=== PATIENT | male | born 1950 | race Caucasian/White ===

== ENCOUNTER 2017-11-27 09:10 | Outpatient (REF) | payer MEDICARE, SELFPAY ==
[2017-11-27 10:28] LABS: ALT 19 U/L (12-78); AST 17 U/L (15-37); Albumin 3.3 g/dL (3.4-5.0); Alkaline Phosphatase 77 U/L (46-116); Bilirubin, Total 0.6 mg/dL (0.2-1.0); Cholesterol 144 mg/dL (50-200); HDL Cholesterol 33 mg/dL (40-60); LDL CHOLESTEROL 85 mg/dL (<100); TSH 2.82 uIU/mL (0.358-3.74); Total Protein 6.5 g/dL (6.4-8.2); Triglyceride 104 mg/dL (30-150)
[2017-11-27 10:39] LABS: Bilirubin, Direct 0.16 mg/dL (0.00-0.20); Creatine Kinase 37 U/L (39-308)
== END 2017-11-27 09:11 ==
LOC: LBN 09:10
PROVIDERS: Visit Provider Family Medicine
DX: I10 Essential (primary) hypertension (principal); E11.9 Type 2 diabetes mellitus without complications; E78.5 Hyperlipidemia, unspecified
CPT/HCPCS: 80061; 80076; 82550; 83721; 84443

== ENCOUNTER 2018-01-31 00:32 | Outpatient (CLI) | payer MEDICARE, SELFPAY ==
--- NOTE | 2018-01-31 07:30 | MERGE_ITS ---
*[facility]* *[facility]* [address] [place] [address] Date of study: 01/31/2018 Transthoracic Echocardiography M-mode, complete 2D, complete spectral Doppler, and color Doppler *STUDY CONCLUSIONS* Impressions: Severe aortic stenosis. Summary: 1. Left ventricle: The cavity size was normal. Wall thickness was increased in a pattern of mild LVH. Systolic function was normal. The estimated ejection fraction was 55-60%. Wall motion was normal; there were no regional wall motion abnormalities. Findings consistent with diastolic dysfunction. Doppler parameters are consistent with high ventricular filling pressure. 2. Aortic valve: There was severe stenosis. There was mild regurgitation. Peak velocity (S): 5.5m/sec. Mean gradient (S): 76mm Hg. Valve area (VTI): 0.5cm^2. 3. Right ventricle: The cavity size was normal. Wall thickness was normal. Systolic function was normal. 4. Right atrium: The atrium was dilated. Recommendations: The patient should be referred to a cardiology consultation. This consultation has been arranged and discussed with the referring physician. *PATIENT PRESENTATION* Height: 165.1cm ((65in) ) S/D Pressure: 107 / 67 Weight: 108.9kg ((239.5lb) ) BSA: 2.29m^2 Test start time: 07:40 AM. Test stop time: 08:40 AM. ORDERING Polina Ramachandran REFERRING Polina Ramachandran PERFORMING Unknown PERFORMING [facility] [employer] Meka Hall, (R)(CT), RDCS REFERRING Rehab, [facility] *PROCEDURE DATA* Procedure information: The patient was identified by two identifiers. This study was interpreted by [facility]. Pertinent images and digital data are archived for permanent storage and are available for subsequent review. No prior study was available for comparison. Study status: Routine. Transthoracic echocardiography. M-mode, complete 2D, complete spectral Doppler, and color Doppler. A Transthoracic Echocardiogram was performed. Scanning was performed from the parasternal, apical, subcostal, and suprasternal notch acoustic windows. Images were obtained using an [id number] cardiac ultrasound machine. Study completion: The patient tolerated the procedure well. There were no complications. History: PMH: Syncope. EKG changes. h/o CAD . *CARDIAC ANATOMY* Left ventricle: The cavity size was normal. Wall thickness was increased in a pattern of mild LVH. Systolic function was normal. The estimated ejection fraction was 55-60%. Wall motion was normal; there were no regional wall motion abnormalities. Findings consistent with diastolic dysfunction. Doppler parameters are consistent with high ventricular filling pressure. Aortic valve: Trileaflet; severely calcified leaflets. Valve mobility was restricted. Doppler: There was severe stenosis. There was mild regurgitation. VTI ratio of LVOT to aortic valve: 0.18. Valve area (VTI): 0.5cm^2. Indexed valve area (VTI): 0.2cm^2/m^2. Peak velocity ratio of LVOT to aortic valve: 0.16. Valve area (Vmax): 0.5cm^2. Indexed valve area (Vmax): 0.2cm^2/m^2. Mean velocity ratio of LVOT to aortic valve: 0.16. Valve area (Vmean): 0.5cm^2. Indexed valve area (Vmean): 0.2cm^2/m^2. Mean gradient (S): 76mm Hg. Peak gradient (S): 119.9mm Hg. Aorta: Aortic root: The aortic root was normal in size. Ascending aorta: The ascending aorta was normal in size. Mitral valve: Mildly calcified annulus. Mobility was not restricted. Doppler: Transvalvular velocity was within the normal range. There was no evidence for stenosis. There was no significant regurgitation. Valve area by pressure half-time: 2cm^2. Indexed valve area by pressure half-time: 0.9cm^2/m^2. Peak gradient (D): 2.1mm Hg. Left atrium: The atrium was normal in size. Right ventricle: The cavity size was normal. Wall thickness was normal. Systolic function was normal. Pulmonic valve: The pulmonary valve appears to be grossly normal. Doppler: Transvalvular velocity was within the normal range. There was no evidence for stenosis. There was trivial regurgitation. Peak gradient (S): 5mm Hg. Tricuspid valve: Structurally normal valve. Doppler: Transvalvular velocity was within the normal range. There was no evidence for stenosis. There was trivial regurgitation. Pulmonary artery: Systolic pressure could not be accurately estimated. Right atrium: The atrium was dilated. Pericardium: There was no pericardial effusion. Systemic veins: Inferior vena cava: Well visualized. The vessel was patent and normal in size. The respirophasic diameter changes were in the normal range (greater than or equal to 50%). Baseline ECG: Normal sinus rhythm. Measurements Left ventricle Value Reference LV ID, ED, PLAX 4.2 cm 3.5 - 6.0 LV ID, ES, PLAX 3.2 cm 2.1 - 4.0 LV PW thickness, ED, PLAX 1.2 cm LV end-diastolic volume, 1-p A2C 97 ml LV ejection fraction, 1-p A2C 52 % LV end-diastolic volume, 1-p A4C 97 ml LV ejection fraction, 1-p A4C 60 % LV e', lateral 0.054 m/sec LV E/e', lateral 13 LV e', medial 0.047 m/sec LV E/e', medial 15 LV e', average 0.05 m/sec LV E/e', average 14 Ventricular septum Value Reference IVS thickness, ED, PLAX 1.2 cm LVOT Value Reference LVOT ID, A-P 1.9 cm LVOT area 2.9 cm^2 LVOT peak velocity, S 0.88 m/sec LVOT mean velocity, S 0.68 m/sec LVOT VTI, S 24.6 cm LVOT peak gradient, S 3.1 mm Hg LVOT mean gradient, S 2 mm Hg Stroke volume (SV), LVOT DP 71 ml Stroke index (SV/bsa), LVOT DP 31 ml/m^2 Aortic valve Value Reference Aortic valve peak velocity, S 5.5 m/sec Aortic valve mean velocity, S 4.18 m/sec Aortic valve VTI, S 138.0 cm Aortic mean gradient, S 76 mm Hg Aortic peak gradient, S 119.9 mm Hg VTI ratio, LVOT/AV 0.18 Aortic valve area, VTI 0.5 cm^2 Velocity ratio, peak, LVOT/AV 0.16 Aortic valve area, peak velocity 0.5 cm^2 Velocity ratio, mean, LVOT/AV 0.16 Aortic valve area, mean velocity 0.5 cm^2 Aortic valve area/bsa, mean velocity 0.2 cm^2/m^2 Aorta Value Reference Aortic root ID, ED 3.6 cm RVOT Value Reference RVOT VTI, S 22.7 cm Left atrium Value Reference LA ID, A-P, ES 3.8 cm LA ID/bsa, A-P 1.6 cm/m^2 <=2.2 LA area, ES, A4C 22.7 cm^2 8.8 - 23.4 LA area, ES, A2C 22 cm^2 LA volume, ES, 2-p 66 ml LA volume/bsa, ES, 2-p 29 ml/m^2 LA/aortic root ratio 1.04 Mitral valve Value Reference Mitral annulus diameter, A-P, D 0.0 cm Mitral E-wave peak velocity 0.73 m/sec Mitral A-wave peak velocity 1.03 m/sec Mitral deceleration time (H) 384 ms 150 - 230 Mitral pressure half-time 111 ms Mitral peak gradient, D 2.1 mm Hg Mitral E/A ratio, peak 0.7 Mitral valve area, PHT, DP 2 cm^2 Pulmonary veins Value Reference Pulmonary vein peak velocity, S 0.62 m/sec Pulmonary vein peak velocity, D 0.36 m/sec Pulmonary vein velocity ratio, peak, 1.73 S/D Pulmonary vein A-wave reversal peak 0.36 m/sec velocity Pulmonary vein A-wave reversal 157 ms duration Tricuspid valve Value Reference Tricuspid regurg peak velocity 2.7 m/sec Tricuspid peak RV-RA gradient 28.6 mm Hg Right atrium Value Reference RA area, ES, A4C (H) 19.8 cm^2 8.3 - 19.5 Pulmonic valve Value Reference Pulmonic peak gradient, S 5 mm Hg Legend: (L) and (H) yeison values outside specified reference range. I have personally reviewed the images and have reviewed and edited the reported findings. Electronically signed by Jonathan Sky 01/31/2018 09:53
== END 2018-01-31 00:52 ==
PROVIDERS: Visit Provider Family Medicine
DX: I35.0 Nonrheumatic aortic (valve) stenosis (principal); I35.1 Nonrheumatic aortic (valve) insufficiency; I51.7 Cardiomegaly
CPT/HCPCS: 93306

== ENCOUNTER 2018-01-31 09:13 | Outpatient (CLI) | payer MEDICARE, SELFPAY | END 2018-01-31 09:33 | PROVIDERS: Visit Provider Student in an Organized Health Care Education/Training Program | DX: I35.0 Nonrheumatic aortic (valve) stenosis (principal); R55 Syncope and collapse; E11.9 Type 2 diabetes mellitus without complications; Z79.4 Long term (current) use of insulin | CPT/HCPCS: 99204 ==

== ENCOUNTER 2018-02-02 14:03 | Outpatient (REF) | payer MEDICARE, SELFPAY ==
[2018-02-02 14:45] LABS: BUN 15 mg/dL (7-18); CREATININE 0.78 mg/dL (0.70-1.30)
== END 2018-02-02 14:23 ==
LOC: LBN 14:03
PROVIDERS: Visit Provider Family Medicine
DX: Z04.89 Encounter for examination and observation for other specified reasons (principal); I10 Essential (primary) hypertension; E11.9 Type 2 diabetes mellitus without complications; F31.2 Bipolar disorder, current episode manic severe with psychotic features; E78.5 Hyperlipidemia, unspecified
CPT/HCPCS: 84520; 82565

== ENCOUNTER 2018-09-18 11:34 | Outpatient (CLI) | payer MEDICARE, SELFPAY ==
[2018-09-18 12:11] LABS: Abs Immature Grans 0.04 k/cumm (0.0-0.09); Absolute Basophil Count 0.02 k/cumm (0.0-0.2); Absolute Lymphocyte Count 1.68 k/cumm (1.2-3.4); Absolute Monocyte Count 0.57 k/cumm (0.11-0.7); Absolute Neutrophil Count 3.26 k/cumm (1.2-6.7); Basophils % 0.4; Eosinophils % 1.8; HCT 38.1 % (40.0-50.0); Immature Grans % 0.7; Lymphocytes % 29.6; Mean Corp. HGB Concentration 34.1 g/dL (32.0-36.0); Mean Corpuscular Hemoglobin 29.5 pg (27.0-33.0); Mean Corpuscular Volume 86.6 fL (80-95); Monocytes % 10.1; Neutrophils % 57.4; Platelet Count 147 x1000/uL (130-400); RBC Distribution Width 13.5 % (11.8-14.1); White Blood Cell Count 5.67 k/cumm (4.4-10.8)
[2018-09-18 12:28] LABS: VALPROIC ACID 77.5 ug/mL (50-100)
[2018-09-18 12:42] LABS: ALT 36 U/L (12-78); AST 28 U/L (15-37); Alkaline Phosphatase 81 U/L (46-116); Anion Gap 7.9 mmol/L (3-11); BUN 17 mg/dL (7-18); Bilirubin, Direct 0.11 mg/dL (0.00-0.20); Bilirubin, Total 0.4 mg/dL (0.2-1.0); CO2 28.1 mmol/L (21.0-32.0); CREATININE 0.84 mg/dL (0.70-1.30); Calcium 9.1 mg/dL (8.5-10.1); Chloride 100 mmol/L (98-107); Glucose 417 mg/dL (70-100); Potassium 4.1 mmol/L (3.5-5.1); Sodium 136 mmol/L (136-145); Total Protein 6.2 g/dL (6.4-8.2)
[2018-09-18 13:01] LABS: Hemoglobin A1C 9.1 % (4.5-6.2)
== END 2018-09-18 11:54 ==
PROVIDERS: Visit Provider Nurse Practitioner Adult Health
DX: E11.9 Type 2 diabetes mellitus without complications (principal); E78.5 Hyperlipidemia, unspecified; F31.2 Bipolar disorder, current episode manic severe with psychotic features; Z51.81 Encounter for therapeutic drug level monitoring; Z79.899 Other long term (current) drug therapy
CPT/HCPCS: 36415; 80048; 80076; 80164; 83036; 85025

== ENCOUNTER 2018-12-18 10:41 | Outpatient (CLI) | payer MEDICARE, SELFPAY ==
[2018-12-18 14:08] LABS: Hemoglobin A1C 8.9 % (4.5-6.2)
== END 2018-12-18 11:01 ==
PROVIDERS: PCP Family Medicine; Visit Provider Nurse Practitioner Adult Health
DX: E11.9 Type 2 diabetes mellitus without complications (principal)
CPT/HCPCS: 36415; 83036

== ENCOUNTER 2018-12-21 12:35 | Outpatient (REF) | payer MEDICARE, SELFPAY ==
[2018-12-21 13:28] LABS: Absolute Basophil Count 0.03 k/cumm (0.0-0.2); Absolute Eosinophil Count 0.09 k/cumm (0.0-0.7); Absolute Lymphocyte Count 1.68 k/cumm (1.2-3.4); Absolute Monocyte Count 0.72 k/cumm (0.11-0.7); Absolute Neutrophil Count 2.94 k/cumm (1.2-6.7); Basophils % 0.5; Eosinophils % 1.6; HCT 37.7 % (40.0-50.0); HGB 12.9 g/dL (13.5-17.5); Immature Grans % 1.8; Lymphocytes % 30.2; Mean Corp. HGB Concentration 34.2 g/dL (32.0-36.0); Mean Corpuscular Hemoglobin 29.7 pg (27.0-33.0); Mean Corpuscular Volume 86.7 fL (80-95); Mean Platelet Volume 10.1 fL (8.0-11.0); Monocytes % 12.9; Platelet Count 146 x1000/uL (130-400); RBC 4.35 m/cumm (4.50-6.00); RBC Distribution Width 13.2 % (11.8-14.1); White Blood Cell Count 5.56 k/cumm (4.4-10.8)
[2018-12-21 14:08] LABS: VALPROIC ACID 82.3 ug/mL (50-100)
[2018-12-21 14:10] LABS: BUN 17 mg/dL (7-18); CREATININE 0.87 mg/dL (0.70-1.30); Chloride 103 mmol/L (98-107); Glucose 318 mg/dL (70-100); Potassium 4.5 mmol/L (3.5-5.1); Sodium 140 mmol/L (136-145)
[2018-12-21 14:11] LABS: Troponin I < 0.05 ng/mL (0.00-0.06)
== END 2018-12-21 12:55 ==
LOC: LBN 12:35
PROVIDERS: PCP Family Medicine; Visit Provider Nurse Practitioner Adult Health
DX: R63.5 Abnormal weight gain (principal); I87.2 Venous insufficiency (chronic) (peripheral); F20.1 Disorganized schizophrenia; Z51.81 Encounter for therapeutic drug level monitoring; Z79.899 Other long term (current) drug therapy; E11.9 Type 2 diabetes mellitus without complications; I10 Essential (primary) hypertension; I35.0 Nonrheumatic aortic (valve) stenosis
CPT/HCPCS: 80048; 80164; 84484; 85025

== ENCOUNTER 2018-12-22 20:14 | Emergency (ER) | payer MEDICARE, SELFPAY ==
[2018-12-22 20:16] VITALS: BP 123/77; PULSE 92; RESP 18; TEMP 36.3; O2SAT 97
[2018-12-22 20:28] LABS: BE (Venous) 3.9 mmol/L (-3-3); HCO3 (Venous) 28 mmol/L (22-28); O2 Sat (Venous) 80 % (70-80); TCO2 (Venous) 25 mmol/L (22-29); pCO2 (Venous) 42 mm/Hg (34-47); pH (Venous) 7.43 (7.32-7.43); pO2 (Venous) 44 mm/Hg (28-44)
--- NOTE | 2018-12-22 20:30 | DI.COMBO_ITS ---
SYMPTOM/DIAGNOSIS: COUGH, ALTERED MENTAL STATUS NONCONTRAST HEAD CT: A noncontrast cranial CT was performed. There are severe changes of cerebral atrophy. No evidence of acute intracranial hemorrhage, mass effect or midline shift. The orbital and temporal bone structures appear intact. Paranasal sinuses show mild mucoperiosteal thickening at multiple sites but otherwise are clear as are the mastoid air cells. CONCLUSION: Severe cerebral atrophy. No evidence of acute intracranial process. PA AND LATERAL CHEST: The lungs appear hypoventilated but clear. Cardiac size is at the upper limits of normal. No pleural effusion is seen. CONCLUSION: No evidence of acute process.
--- NOTE | 2018-12-22 20:31 | W.ED.GENAD ---
Discharge Plan Disposition Patient Disposition: SNF (LEVEL 1) [facility] Condition: Stable Discharge Details Chief Complaint: AMS/LOC Clinical Impression: Schizophrenia, Weakness Primary Care Provider: Lamar Gerber ED Provider: Sher Benedict Home Meds and New Rx's Prescriptions: Continued divalproex 500 MG tablet extended release 24 hr 4 tab PO .QHS RF: 0 acetaminophen [Tylenol] 325 MG tablet 650 mg PO PRN PRNRF: 0 polyethylene glycol 3350 [Miralax] 17 GM powder in packet 17 gm PO DAILY RF: 0 olanzapine 10 MG tablet 10 mg PO .QHS RF: 0 olanzapine 2.5 MG tablet 7.5 mg PO QAM RF: 0 trazodone 300 MG tablet 300 mg PO .QHS RF: 0 lorazepam [Ativan] 1 MG tablet 0.5 mg PO .BEDTIME RF: 0 fluphenazine HCl 5 MG tablet 5 mg PO BID RF: 0 omeprazole 20 MG capsule,delayed release(DR/EC) 20 mg PO DAILY@0730 RF: 0 furosemide 20 MG tablet 10 mg PO DAILY RF: 0 Novolog Flexpen U-100 Insulin 100 UNIT/ML insulin pen 12 unit Sub-Q PRN PRNRF: 0 metformin 500 MG tablet 500 mg PO DAILY RF: 0 melatonin 1 MG tablet 2 mg PO .QHS RF: 0 atorvastatin [Lipitor] 40 MG tablet 40 mg PO QPM Qty: 30 RF: 0 nicotine 14 MG/24 HR patch 24 hour 14 mg Transdermal DAILY PRN PRNQty: 30 RF: 0 aspirin 81 MG tablet,delayed release (DR/EC) 81 mg PO DAILY Qty: 30 RF: 0 Lantus Solostar U-100 Insulin 300 UNITS/3 ML insulin pen 30 units Sub-Q DAILY Qty: 5 RF: 0 Lantus U-100 Insulin 100 UNITS/ML solution 22 unit Sub-Q HS Qty: 0 RF: 0 Discharge Instructions Instructions: Weakness (ED) Additional Instructions: follow up with your primary care provider within 1-2 weeks if you have high fevers, feel more ill or have persistent vomit return to the emergency department Medical Decision Making 68 yo male with hx of cad, schizophrenia, t2dm who resides at [facility] and rehab due to needing chronic help with his adl's, who comes in with 2 weeks of reported not acting himself and tonight did not want dinner so they went him here. He currently states he feels tired. He will not answer all questions but does know his name, year and where he is currently and denies chest pain, fevers, sob, abd pain. He is moving all extremities without deficits, no facail droop. I suspect partly his symptoms could be due to his schizophrenia but will image his head to eval for sdh, given no focal deficits doubt cva. Will also eval for anemia and electrolyte abnormality as well and obtain cxr to make sure there is no evidence of pna though unlikely given lack of cough pt's labs and imaging show no acute findings other than elevated probnp without evidence of chf on xray. He remains without complaints on exam and would like to be d/c'd back to rehab. Will d/c back and advised f/u with pcp and return precautions given. UA cancelled as he clearly denies any urinary symptoms so unlikely uti Differential Diagnosis anemia, schizophrenia, electrolyte abnormality, sdh Medical Records Medical records reviewed: Yes I reviewed the patient's medical records. Imaging Data Radiologic Study: Attestation: I personally reviewed and interpreted this imaging study as follows: Imaging: CT Scan Radiologist's impression: IMPRESSION: 1. No acute intracranial abnormality. Stable senescent findings, as above. 2. Mild sinus inflammatory changes, as above. Radiologic Study #2: Attestation: I personally reviewed and interpreted this imaging study as follows: Imaging: X-Ray Radiologist's impression: IMPRESSION: 1. Slightly low lung volumes. Otherwise negative for acute cardiopulmonary disease. 2. Suggestion of mild cardiomegaly, likely exaggerated by slightly low lung volumes. Lab Data Lab results reviewed: Yes I reviewed the patient's lab results. ECG Data Attestation: I personally reviewed and interpreted this ECG (s) as follows: Prior ECG tracings: not available for review Interpretation: sinus rhythm, rate of 94, pr 210, qtc 488 HPI General Mode of arrival: EMS. Date/Time Provider Initiated Documentation: 12/22/18 20:25. Limitations to Documentation: other (only answer's certain questions). Information obtained by: patient and EMS. History of Present Illness 68 year old M presents to the emergency department with the chief complaint of tired, described as moderate, Patient started experiencing this day(s) (14) and it has been constant. No relieving factors improve symptom(s), No exacerbating factors reported . Patient did receive the following treatments prior to arrival, none Related Data Home Medications Medication Instructions Recorded Confirmed acetaminophen [Tylenol] 650 mg PO PRN PRN 11/27/14 12/22/18 divalproex 4 tab PO .QHS 11/27/14 12/22/18 fluphenazine HCl 5 mg PO BID 11/27/14 12/22/18 lorazepam [Ativan] 0.5 mg PO .BEDTIME 11/27/14 10/27/17 olanzapine 7.5 mg PO QAM 11/27/14 12/22/18 olanzapine 10 mg PO .QHS 11/27/14 12/22/18 polyethylene glycol 3350 [Miralax] 17 gm PO DAILY 11/27/14 12/22/18 trazodone 300 mg PO .QHS 11/27/14 10/27/17 Novolog Flexpen U-100 Insulin 12 unit SUB-Q PRN PRN 12/04/15 10/27/17 furosemide 10 mg PO DAILY 12/04/15 12/22/18 omeprazole 20 mg PO DAILY@0730 12/04/15 12/22/18 melatonin 2 mg PO .QHS 10/27/17 12/22/18 metformin 500 mg PO DAILY 10/27/17 10/27/17 Lantus Solostar U-100 Insulin 30 units SUB-Q DAILY #5 pen 10/28/17 12/22/18 Lantus U-100 Insulin 22 unit SUB-Q HS #0 10/28/17 12/22/18 aspirin 81 mg PO DAILY #30 tabec 10/28/17 12/22/18 atorvastatin [Lipitor] 40 mg PO QPM #30 tab 10/28/17 12/22/18 nicotine 14 mg TRANSDERMAL DAILY PRN PRN 10/28/17 #30 patch Previous Rx's Medication Instructions Recorded Lantus Solostar U-100 Insulin 30 units SUB-Q DAILY #5 pen 10/28/17 Lantus U-100 Insulin 22 unit SUB-Q HS #0 10/28/17 aspirin 81 mg PO DAILY #30 tabec 10/28/17 atorvastatin [Lipitor] 40 mg PO QPM #30 tab 10/28/17 nicotine 14 mg TRANSDERMAL DAILY PRN PRN 10/28/17 #30 patch Allergies Allergy/AdvReac Type Severity Reaction Status Date / Time No Known Allergies Allergy Unverified 12/22/18 20:55 General Stated Complaint: AMS/LOC MARISA: 3 Review of Systems Review of Systems All systems reviewed & are unremarkable except as noted in HPI and below Constitutional Denies chills and Denies fever(s) Cardiovascular Denies chest pain and Denies dyspnea Respiratory Denies cough and Denies dyspnea Gastrointestinal Denies abdominal pain, Denies nausea and Denies vomiting Musculoskeletal Denies joint swelling [facility] Social History Smoking/Tobacco Use Status: Former Tobacco Use Drug use: Never Do you feel safe in your relationship?: Yes Exam Const General: no acute distress Orientation: alert HENMT Head: normal to inspection Ears: external ears normal General nose exam: external nose normal Mouth: moist mucous membranes Eyes General: appearance normal, both eyes and all related structures Neck Neck: normal visual inspection Resp Effort & Inspection: normal respiratory effort and able to speak in complete sentences Cardio Rate: regular rate Skin General skin exam: no rashes or lesions noted Neuro General: alert and oriented x3 Extrem General: normal to inspection Psych Mental Status: mental status grossly normal Course Vital Signs Temperature 36.3 C L 12/22/18 20:16 Pulse 92 H 12/22/18 20:16 Respiratory Rate 18 12/22/18 20:16 Blood Pressure 123/77 12/22/18 20:16 Pulse Oximetry 97 12/22/18 20:16 Temperature 36.3 C L 12/22/18 20:16 Temperature Source Temporal Artery Scan 12/22/18 20:16 Pulse 92 H 12/22/18 20:16 Respiratory Rate 18 12/22/18 20:16 Respiratory Effort 12/22/18 20:16 Blood Pressure 123/77 12/22/18 20:16 Pulse Oximetry 97 12/22/18 20:16 Oxygen Delivery Method Room Air 12/22/18 20:16 Oxygen Flow Rate 0 12/22/18 20:16 Pain Level 2 12/22/18 20:16 Lab/Test Results Lab/Test Results: Laboratory Tests Range/Units 12/22/18 20:20 VBG pH (7.32-7.43) 7.43 VBG pCO2 (34-47) mm/Hg 42 VBG pO2 (28-44) mm/Hg 44 VBG HCO3 (22-28) mmol/L 28 VBG Total CO2 (22-29) mmol/L 25 VBG O2 Saturation (70-80) % 80 VBG Base Excess (-3-3) mmol/L 3.9 H
[2018-12-22 20:32] LABS: Abs Immature Grans 0.08 k/cumm (0.0-0.09); Absolute Basophil Count 0.02 k/cumm (0.0-0.2); Absolute Eosinophil Count 0.06 k/cumm (0.0-0.7); Absolute Lymphocyte Count 1.61 k/cumm (1.2-3.4); Absolute Monocyte Count 1.17 k/cumm (0.11-0.7); Absolute Neutrophil Count 5.48 k/cumm (1.2-6.7); Basophils % 0.2; Eosinophils % 0.7; HCT 38.8 % (40.0-50.0); HGB 13.2 g/dL (13.5-17.5); Lymphocytes % 19.1; Mean Corpuscular Hemoglobin 29.5 pg (27.0-33.0); Mean Corpuscular Volume 86.8 fL (80-95); Mean Platelet Volume 9.2 fL (8.0-11.0); Monocytes % 13.9; Neutrophils % 65.1; Platelet Count 161 x1000/uL (130-400); RBC 4.47 m/cumm (4.50-6.00); RBC Distribution Width 13.4 % (11.8-14.1); White Blood Cell Count 8.42 k/cumm (4.4-10.8)
[2018-12-22 20:46] LABS: INR 1.1 (0.9-1.1); PTT Activated 25.7 sec (21.0-31.4)
[2018-12-22 20:50] VITALS: RESP 18
[2018-12-22 20:54] LABS: ALT 30 U/L (16-63); AST 33 U/L (15-37); Albumin 2.7 g/dL (3.4-5.0); Alkaline Phosphatase 104 U/L (46-116); Anion Gap 8.9 mmol/L (3-11); BUN 18 mg/dL (7-18); Bilirubin, Total 0.7 mg/dL (0.2-1.0); CO2 27.1 mmol/L (21.0-32.0); CREATININE 0.95 mg/dL (0.70-1.30); Calcium 8.7 mg/dL (8.5-10.1); Chloride 103 mmol/L (98-107); Glucose 279 mg/dL (70-100); Magnesium 1.5 mg/dL (1.8-2.4); Sodium 139 mmol/L (136-145); Total Protein 7.1 g/dL (6.4-8.2)
[2018-12-22 20:56] LABS: Acetaminophen < 2 ug/mL (10-30); Lipase 63 U/L (73-393); NT-proBNP 1468 pg/mL
[2018-12-22 20:58] LABS: TSH (W/Ref FT4) 4.06 uIU/mL (0.36-3.74)
[2018-12-22 21:03] LABS: ETHANOL BLOOD < 3.0 mg/dL (<3)
[2018-12-22 21:16] LABS: FREE T4 0.97 ng/dL (0.76-1.46)
[2018-12-22 21:19] LABS: Salicylate < 2.8 mg/dL (2.8-20.0)
--- NOTE | 2018-12-22 21:22 | DI.VRAD_ITS ---
EXAM: CT Head Without Contrast EXAM DATE/TIME: 12/22/2018 8:31 PM CLINICAL HISTORY: 68 years old, male; Altered mental status/memory loss TECHNIQUE: Imaging protocol: Computed tomography of the head without contrast. COMPARISON: CT HEAD WITHOUT CONTRAST 10/27/2017 3:02 PM FINDINGS: Brain: There is no evidence of hemorrhage or mass effect. Areas of hypoattenuation in the bilateral cerebral white matter are consistent with gliosis in the setting of chronic microvascular ischemia. Huffman-white matter differentiation is preserved. There is moderate diffuse cerebral volume loss. Ventricles: No ventriculomegaly. Diffuse prominence of CSF-containing structures noted, due to brain parenchymal volume loss, unchanged. Bones/joints: Unremarkable. No acute fracture. Sinuses: Mucosal thickening is noted involving the left maxillary and sphenoid sinuses. No sinus opacification or air-fluid levels. Mastoid air cells: Visualized mastoid air cells are well aerated. Soft tissues: Unremarkable. IMPRESSION: 1. No acute intracranial abnormality. Stable senescent findings, as above. 2. Mild sinus inflammatory changes, as above. Dictated and Authenticated by: James Billingsley MD. Ordering:RUBEN Olivarez MD
--- NOTE | 2018-12-22 21:31 | DI.VRAD_ITS ---
EXAM: XR Chest, 2 Views EXAM DATE/TIME: 12/22/2018 8:31 PM CLINICAL HISTORY: 68 years old, male; Other: Cough TECHNIQUE: Imaging protocol: XR of the chest Views: 2 views. COMPARISON: CR CHEST 2 VIEWS PA,LAT 10/27/2017 3:14 PM FINDINGS: Tubes, catheters and devices: Telemetry leads overlie the thorax. Lungs: Lung volumes are slightly low, with mild bronchovascular crowding. No focal consolidation is seen. Pleural space: Unremarkable. No pleural effusion. No pneumothorax. Heart/Mediastinum: Cardiac silhouette appears mildly enlarged. Vascular calcifications are present in the aortic arch. Bones/joints: Osseous degenerative change commensurate with age noted. No acute fractures are identified. IMPRESSION: 1. Slightly low lung volumes. Otherwise negative for acute cardiopulmonary disease. 2. Suggestion of mild cardiomegaly, likely exaggerated by slightly low lung volumes. Dictated and Authenticated by: James Billingsley MD. Ordering:RUBEN Olivarez MD
[2018-12-22 21:55] VITALS: BP 107/71; PULSE 94; RESP 16; O2SAT 95
== END 2018-12-22 21:55 | disposition skilled nursing facility (03) ==
PROVIDERS: Emergency Provider Emergency Medicine; PCP Family Medicine
DX: F20.9 Schizophrenia, unspecified (principal); R53.1 Weakness; E11.9 Type 2 diabetes mellitus without complications; Z79.4 Long term (current) use of insulin
CPT/HCPCS: 36415; 80053; 82805; 83690; 93005; 99284; 70450; 71046; 80320; 80329; 83735; 83880; 84439; 84443; 85025; 85610; 85730; 93010

== ENCOUNTER 2019-01-29 16:40 | Inpatient (IN) | payer MEDICARE, SELFPAY ==
[2019-01-29] VITALS (93 sets, daily range): BP systolic 88–166; BP diastolic 14–126; PULSE 44–210; RESP 2–58; TEMP 35.5–37.1; O2SAT 71–211
--- NOTE | 2019-01-29 16:46 | DI.RAD_ITS ---
EXAM: XR PORTABLE CHEST AP INDICATION: acute SOB. COMPARISON: XR CHEST 2V PA LATERAL from 12/22/2018 TECHNIQUE: 2D digital imaging was performed. FINDINGS: The heart is mildly enlarged, unchanged. There are now increased densities seen in the right lung which appear slightly greater at the base. Questionable densities are seen at the left lung base. F indings are suspicious for pneumonia. IMPRESSION: Upper and lower lobe infiltrates.
--- NOTE | 2019-01-29 16:48 | W.ED.GENAD ---
Discharge Plan Disposition Patient Disposition: [facility] INPATIENT Condition: Critical Discharge Details Chief Complaint: SOB Clinical Impression: Pneumonia involving right lung, Congestive heart failure, Acidosis, lactic Primary Care Provider: Lamar Gerber ED Provider: Georges Simon Home Meds and New Rx's Prescriptions: No Action divalproex 500 MG tablet extended release 24 hr 4 tab PO .QHS RF: 0 acetaminophen [Tylenol] 325 MG tablet 650 mg PO PRN PRNRF: 0 polyethylene glycol 3350 [Miralax] 17 GM powder in packet 17 gm PO DAILY RF: 0 olanzapine 10 MG tablet 10 mg PO .QHS RF: 0 olanzapine 2.5 MG tablet 5 mg PO QAM RF: 0 fluphenazine HCl 5 MG tablet 5 mg PO BID RF: 0 omeprazole 20 MG capsule,delayed release(DR/EC) 20 mg PO DAILY@0730 RF: 0 furosemide 20 MG tablet 10 mg PO DAILY RF: 0 Novolog Flexpen U-100 Insulin 100 UNIT/ML insulin pen 12 unit Sub-Q PRN PRNRF: 0 melatonin 1 MG tablet 2 mg PO .QHS RF: 0 atorvastatin [Lipitor] 40 MG tablet 40 mg PO QPM Qty: 30 RF: 0 aspirin 81 MG tablet,delayed release (DR/EC) 81 mg PO DAILY Qty: 30 RF: 0 Lantus Solostar U-100 Insulin 300 UNITS/3 ML insulin pen 30 units Sub-Q DAILY Qty: 5 RF: 0 Lantus U-100 Insulin 100 UNITS/ML solution 22 unit Sub-Q HS Qty: 0 RF: 0 Medical Decision Making 68-year-old male who lives at local rehabilitation facility. He has a history of schizophrenia, CHF, COPD. He is reported to have hours of worsening and progressive shortness of breath with oxygen requirement today that resulted in ambulance being called. They found the patient to be hypoxic in the 70s with a respiratory rate of 40-50. He was placed on BiPAP and transported to the ED. He arrives in extreme distress. He has coarse rales and rhonchi throughout both lung mccall. He is tachycardic to nearly 200. IV placed, stat portable chest x-ray and EKG obtained. Differential diagnosis includes aspiration pneumonia, healthcare acquired pneumonia, CHF. Patient given DuoNeb and Solu-Medrol. Patient given IV Lasix empirically for fluid overload. Blood cultures and antibiotics (vancomycin and Zosyn) ordered. I discussed the case with his sister Farrah Jiang who is his power of admitted attorneys. She reiterates that he is to be DNR, DNI. Portable chest x-ray reveals right chest opacities as well as left base opacities likely representing pneumonia. Stat lactic acid is elevated at 8.0. Review of records reveals elevated BNP of 1498 on December 22. Therefore, awaiting BNP, the patient was given diuresis as above. White blood cell count impressively elevated at 29. Chemistries reveal a positive troponin of 0.46, sodium 137, potassium 3.6, chloride 97, bicarb 22, anion gap 17, BUN 17, creatinine 1.3. BNP elevated at 3648. The patient has acute right-sided pneumonia, lactic acidemia, acute congestive heart failure, tachydysrhythmia. His fluid balance is challenging. Given 5 mg Lopressor IV for a modicum of rate control. In honoring his wishes to be DNR, DNI, management of his critical condition will be challenging without intubation or central venous access. His sister acknowledges his severity of illness, but asked that we continue to manage him medically awaiting further family arrival of his niece Cira. Dr. Ortega asked to attend to the patient in consultation. After Dr. Ortega's evaluation, patient's niece Cira discussed his case with the power of admitted attorneys his sister Farrah. The family wishes that the patient be DNR, DNI, no central line or pressors. He will have oxygen, fluids, antibiotics. Patient to be admitted Lab Data Lab results reviewed: Yes I reviewed the patient's lab results. Labs: Laboratory Results - last 24 hr 01/29/19 01/29/19 01/29/19 16:50 16:50 16:50 WBC 29.68 H* RBC 5.13 Hgb 15.3 Hct 44.5 MCV 86.7 MCH 29.8 MCHC 34.4 RDW 13.8 Plt Count 333 MPV 10.1 Immature Gran % See Differential Neutrophils % 62.0 Band Neutrophils % 2.0 Lymphocytes % 26.0 Monocytes % 9.0 Eosinophils % 1.0 Basophils % 0.0 Absolute Neutrophils 19.00 H Absolute Lymphocytes 7.72 H Absolute Monocytes 2.67 H Absolute Eosinophils 0.30 Absolute Basophils 0.00 Differential Comment Manual differential RBC Morphology Normal PT INR APTT Sodium 137 Potassium 3.6 Chloride 97 L Carbon Dioxide 22.7 Anion Gap 17.3 H BUN 17 Creatinine 1.34 H Estimated GFR/1.73 m2 52.70 Glucose 344 H Lactate 8.0 H* Calcium 9.1 Magnesium 1.7 L Total Bilirubin 0.7 AST 45 H ALT 38 Alkaline Phosphatase 104 Troponin I 0.46 H* NT-Pro-B Natriuret Pep 3648 H Total Protein 8.0 Albumin 3.2 L Urine Color Urine Clarity Urine pH Ur Specific [place] Urine Protein Urine Ketones Urine Blood Urine Nitrite Urine Bilirubin Urine Urobilinogen Ur Leukocyte Esterase Urine RBC Urine WBC Ur Epithelial Cells Urine Crystals Urine Bacteria Urine Casts Urine Mucus Ur Culture Indicated? Urine Glucose 01/29/19 01/29/19 16:50 17:03 WBC RBC Hgb Hct MCV MCH MCHC RDW Plt Count MPV Immature Gran % Neutrophils % Band Neutrophils % Lymphocytes % Monocytes % Eosinophils % Basophils % Absolute Neutrophils Absolute Lymphocytes Absolute Monocytes Absolute Eosinophils Absolute Basophils Differential Comment RBC Morphology PT 11.0 INR 1.1 APTT 24.7 Sodium Potassium Chloride Carbon Dioxide Anion Gap BUN Creatinine Estimated GFR/1.73 m2 Glucose Lactate Calcium Magnesium Total Bilirubin AST ALT Alkaline Phosphatase Troponin I NT-Pro-B Natriuret Pep Total Protein Albumin Urine Color Yellow Urine Clarity Clear Urine pH 6.5 Ur Specific [place] 1.025 Urine Protein 100 H Urine Ketones 15 H Urine Blood Negative Urine Nitrite Negative Urine Bilirubin Negative Urine Urobilinogen 1.0 H Ur Leukocyte Esterase Negative Urine RBC 3-5 H Urine WBC 3-5 Ur Epithelial Cells Few Urine Crystals Negative Urine Bacteria Negative Urine Casts 20-50 coarsegranular Urine Mucus Negative Ur Culture Indicated? No Urine Glucose >=1000 H ECG Data Attestation: I personally reviewed and interpreted this ECG (s) as follows: Interpretation: EKG #1: Rapid atrial fibrillation EKG #2 shows sinus tachycardia with a rate of 134, there is subtle ST segment depression present HPI General Mode of arrival: EMS. Date/Time Provider Initiated Documentation: 01/29/19 17:03. Limitations to Documentation: no limitations. Information obtained by: patient, EMS and RN notes reviewed. History of Present Illness 68 year old M presents to the emergency department with the chief complaint of Shortness of breath and increased respiratory rate at rehab facility, described as severe, Quality is described as constant, and is localized to the chest. Patient started experiencing this hour(s) and it has been constant. No relieving factors improve symptom(s), No exacerbating factors reported . Patient notes cough and shortness of breath. Patient did receive the following treatments prior to arrival, other (Noninvasive positive pressure) Related Data Home Medications Medication Instructions Recorded Confirmed acetaminophen [Tylenol] 650 mg PO PRN PRN 11/27/14 01/29/19 divalproex 4 tab PO .QHS 11/27/14 01/29/19 fluphenazine HCl 5 mg PO BID 11/27/14 01/29/19 olanzapine 5 mg PO QAM 11/27/14 01/29/19 olanzapine 10 mg PO .QHS 11/27/14 01/29/19 polyethylene glycol 3350 [Miralax] 17 gm PO DAILY 11/27/14 01/29/19 Novolog Flexpen U-100 Insulin 12 unit SUB-Q PRN PRN 12/04/15 01/29/19 furosemide 10 mg PO DAILY 12/04/15 01/29/19 omeprazole 20 mg PO DAILY@0730 12/04/15 01/29/19 melatonin 2 mg PO .QHS 10/27/17 01/29/19 Lantus Solostar U-100 Insulin 30 units SUB-Q DAILY #5 pen 10/28/17 01/29/19 Lantus U-100 Insulin 22 unit SUB-Q HS #0 10/28/17 01/29/19 aspirin 81 mg PO DAILY #30 tabec 10/28/17 01/29/19 atorvastatin [Lipitor] 40 mg PO QPM #30 tab 10/28/17 01/29/19 Previous Rx's Medication Instructions Recorded Lantus Solostar U-100 Insulin 30 units SUB-Q DAILY #5 pen 10/28/17 Lantus U-100 Insulin 22 unit SUB-Q HS #0 10/28/17 aspirin 81 mg PO DAILY #30 tabec 10/28/17 atorvastatin [Lipitor] 40 mg PO QPM #30 tab 10/28/17 Allergies Allergy/AdvReac Type Severity Reaction Status Date / Time No Known Allergies Allergy Unverified 01/29/19 17:41 General MARISA: 3 Review of Systems Review of Systems Narrative: Report of recent pneumonia. DNR/DNI. Does want hospitalization, medications. Review of systems limited by acuity of patient's condition. [facility] Social History Smoking/Tobacco Use Status: Former Tobacco Use Drug use: Never Do you feel safe in your relationship?: Yes Exam Narrative Exam Narrative: GEN: awake, on BiPAP, interactive, ill appearing HEAD: Normocephalic, atraumatic ENT: Mucous membranes moist, oropharynx unremarkable, External ear exam unremarkable EYES: PERRL, EOMI NECK: Full ROM, no KELSY, no menigismus CHEST/RESP: Nontender, coarse breath sounds throughout CARDIOVASCULAR: irregular tachycardic, no murmur, rub dimple. 1+ Rad pulse bilateral ABDOMEN: Soft, nontender, no mass. +Bowel sounds EXT: Full ROM, edema bilateral, 2+ edema, cyanotic Neuro: Patient responds to voice. Moves all extremities. Psych: unable to assess Critical Care Time Critical Care Time Critical Care Time: Yes Total Critical Care Time: 60 Attestation: Bedside care, review of records, discussion with admitting physician, family members
[2019-01-29] MEDS: methylPREDNISolone SUCC 125 MG VIAL IVP (16:50)
[2019-01-29] MEDS: Furosemide 100 MG/10 ML VIAL 80 MG IVP (16:50)
[2019-01-29] MEDS: Albuterol/Ipratropium 3 ML UPD VIAL UPD (17:00)
[2019-01-29 17:04] LABS: Abs Immature Grans 0.22 k/cumm (0.0-0.09); HCT 44.5 % (40.0-50.0); HGB 15.3 g/dL (13.5-17.5); Mean Corp. HGB Concentration 34.4 g/dL (32.0-36.0); Mean Corpuscular Hemoglobin 29.8 pg (27.0-33.0); Mean Corpuscular Volume 86.7 fL (80-95); Mean Platelet Volume 10.1 fL (8.0-11.0); Platelet Count 333 x1000/uL (130-400); RBC 5.13 m/cumm (4.50-6.00); RBC Distribution Width 13.8 % (11.8-14.1)
[2019-01-29] MEDS: Lidocaine 2% Jelly 6 ML SYR (17:05)
--- NOTE | 2019-01-29 17:07 | DI.VRAD_ITS ---
PROCEDURE INFORMATION: Exam: XR Chest, 1 View Exam date and time: 01/29/2019 5:01 PM Clinical history: 68 years old, male; Other: Acute SOB TECHNIQUE: Imaging protocol: XR of the chest Views: 1 view. COMPARISON: SC XR CHEST 2V PA LATERAL 12/22/2018 8:58 PM FINDINGS: Lungs: Opacities in the right hemithorax and left base may represent atelectasis or pneumonia. Pleural space: Unremarkable. No pleural effusion. No pneumothorax. Heart/Mediastinum: Stable cardiac silhouette The patient's head is flexed anteriorly, obscuring the apices Bones/joints: Stable IMPRESSION: Opacities in the right hemithorax and left base may represent atelectasis or pneumonia. Dictated and Authenticated by: Tova Cornelius MD. Ordering:TIM Su MD
[2019-01-29 17:14] LABS: White Blood Cell Count 29.68 k/cumm (4.4-10.8)
[2019-01-29 17:15] LABS: INR 1.1 (0.9-1.1); PTT Activated 24.7 sec (21.0-31.4)
[2019-01-29] MEDS: Albuterol/Ipratropium 3 ML UPD VIAL (17:15)
[2019-01-29] MEDS: PIPERACILLIN/TAZO 3.375 GM in Normal Saline 50 ML IVPB (17:15)
[2019-01-29 17:21] LABS: Bilirubin Negative (Negative); Blood Negative (Negative); Clarity Clear (Clear); Glucose >=1000 mg/dL (Negative); Ketones 15 mg/dL (Negative); Leukocyte Esterase Negative (Negative); Nitrite Negative (Negative); Specific Gravity 1.025 (1.005-1.025); pH 6.5 (5-8)
[2019-01-29] MEDS: LORazepam 2 MG/ML VIAL 0.5 MG IVP (17:21)
[2019-01-29 17:30] LABS: ALT 38 U/L (16-63); AST 45 U/L (15-37); Albumin 3.2 g/dL (3.4-5.0); Alkaline Phosphatase 104 U/L (46-116); Anion Gap 17.3 mmol/L (3-11); BUN 17 mg/dL (7-18); Bilirubin, Total 0.7 mg/dL (0.2-1.0); CO2 22.7 mmol/L (21.0-32.0); CREATININE 1.34 mg/dL (0.70-1.30); Calcium 9.1 mg/dL (8.5-10.1); Chloride 97 mmol/L (98-107); Glucose 344 mg/dL (70-100); Magnesium 1.7 mg/dL (1.8-2.4); Potassium 3.6 mmol/L (3.5-5.1); Sodium 137 mmol/L (136-145)
[2019-01-29 17:32] LABS: Bacteria Negative HPF (Negative); Crystals Negative HPF (Negative); Epithelial Cells Few HPF (Negative); Mucus Negative (Negative)
[2019-01-29 17:33] LABS: C & S Indicated? No
[2019-01-29 17:34] LABS: Troponin I 0.46 ng/mL (0.00-0.06)
[2019-01-29] MEDS: VANCOMYCIN 1,250 MG in Normal Saline 250 ML 166.6666 MG IVPB (17:34)
[2019-01-29 17:40] LABS: Absolute Lymphocyte Count 7.72 k/cumm (1.2-3.4); Absolute Monocyte Count 2.67 k/cumm (0.11-0.7)
[2019-01-29 17:41] LABS: Diff Comment Manual Differential; RBC Morphology Normal
[2019-01-29] MEDS: Normal Saline 250 ML IV (17:45)
[2019-01-29 17:51] LABS: NT-proBNP 3648 pg/mL
[2019-01-29] MEDS: Metoprolol 5 MG/5 ML VIAL IVP ×2 (18:51→21:43)
--- NOTE | 2019-01-29 19:11 | W.PM.HP.N ---
Date of service: 01/29/19 Time of Service: 19:11 Assessment and Plan Assessment and plan (1) Pneumonia: Status: Acute Assessment and plan: Multiple issues, not entirely clear which is cause or effect. Certainly looks like a pneumonia what with tachypnea, CXR findings, leukopcytosis and lactic acidosis, though some of this could represent an element of heart failure. In addition there is (or was at this point) rapid AF, either the cause or effect of an element of demand ischemia versus ACS. 1. ID: continue Vanco and Zosyn 2. R/O: trend troponins 3. PAF: prn beta gisel. 4. DM: sliding scale coverage 5. respiratory: BiPap, prn MS, prn updrafts, ? further steroids AD: DNR/DNI History of Present Illness History of Present Illness Chief Complaint: SOB Narrative: 68 male with schizphrenia and multiple medical problems, resident of [facility]. Here with some hours of tachypnea. On arrival patient cyanotic and in severe distress. Initial findings of note for rapid AF up to 190s, O2 sats in 70s, diffuse rales and rhonchi, white count of 29K, lactate 8.0; troponin 0.46, CXR bibasialr pneumonitis. Patient started on BiPap, given solumedrol, updrafts, Lasix and doses of vanco and Zosyn. When I first saw patient pulse 180s, BP 1320/sys, O2 sat in 90s. Patient given Lopressor 5 IV with conversion to sinus tach 120-130. ER sp[meme with POA in CT, furhter disccussions with myself and ER staff with niece on site, and then after follow up with POA plan was arrived at to pursue relatively non-aggressive approach entailing O2, antibiotics and meds for rate control as needed and basic general supportive measures, with main focus on keeping patient comfortable, but also treating those conditions that could be treated in relatively straight forward manner, as outlined above. hey firstly do not want any CPR, and beyond that no aggressive medical measures. They understand that patient's condition is unstable, very serious and prognosis uncertain. Review of Systems Review of Systems ROS Unobtainable: Unobtainable due to mental status [facility], [facility] Social History Smoking/Tobacco Use Status: Former Tobacco Use Drug use: Never Do you feel safe in your relationship?: Yes Meds Home Medications and Allergies Home Medications Medication Instructions Recorded Confirmed Type acetaminophen [Tylenol] 650 mg PO PRN PRN 11/27/14 01/29/19 History divalproex 4 tab PO .QHS 11/27/14 01/29/19 History fluphenazine HCl 5 mg PO BID 11/27/14 01/29/19 History olanzapine 5 mg PO QAM 11/27/14 01/29/19 History olanzapine 10 mg PO .QHS 11/27/14 01/29/19 History polyethylene glycol 3350 [Miralax] 17 gm PO DAILY 11/27/14 01/29/19 History Novolog Flexpen U-100 Insulin 12 unit SUB-Q PRN PRN 12/04/15 01/29/19 History furosemide 10 mg PO DAILY 12/04/15 01/29/19 History omeprazole 20 mg PO DAILY@0730 12/04/15 01/29/19 History melatonin 2 mg PO .QHS 10/27/17 01/29/19 History Lantus Solostar U-100 Insulin 30 units SUB-Q DAILY #5 pen 10/28/17 01/29/19 Rx Lantus U-100 Insulin 22 unit SUB-Q HS #0 10/28/17 01/29/19 Rx aspirin 81 mg PO DAILY #30 tabec 10/28/17 01/29/19 Rx atorvastatin [Lipitor] 40 mg PO QPM #30 tab 10/28/17 01/29/19 Rx Allergies Allergy/AdvReac Type Severity Reaction Status Date / Time No Known Allergies Allergy Unverified 01/29/19 17:41 Exam Narrative Exam Narrative: 99/59, 134, 40, 36.4, 98%. HEENT AT/NC, neck supple; lungs clear but dimiinished; heart tachy and regular (at this time); abdomen soft NT; extremities trace edema, neuro responsive to painful stimuli in nonspecific manner, moves all 4s Results Labs Result diagrams: 01/29/19 16:50 01/29/19 16:50 Labs: Laboratory Results - last 24 hr 01/29/19 01/29/19 01/29/19 16:50 16:50 16:50 WBC 29.68 H* RBC 5.13 Hgb 15.3 Hct 44.5 MCV 86.7 MCH 29.8 MCHC 34.4 RDW 13.8 Plt Count 333 MPV 10.1 Immature Gran % See Differential Neutrophils % 62.0 Band Neutrophils % 2.0 Lymphocytes % 26.0 Monocytes % 9.0 Eosinophils % 1.0 Basophils % 0.0 Absolute Neutrophils 19.00 H Absolute Lymphocytes 7.72 H Absolute Monocytes 2.67 H Absolute Eosinophils 0.30 Absolute Basophils 0.00 Differential Comment Manual differential RBC Morphology Normal PT INR APTT Sodium 137 Potassium 3.6 Chloride 97 L Carbon Dioxide 22.7 Anion Gap 17.3 H BUN 17 Creatinine 1.34 H Estimated GFR/1.73 m2 52.70 Glucose 344 H Lactate 8.0 H* Calcium 9.1 Magnesium 1.7 L Total Bilirubin 0.7 AST 45 H ALT 38 Alkaline Phosphatase 104 Troponin I 0.46 H* NT-Pro-B Natriuret Pep 3648 H Total Protein 8.0 Albumin 3.2 L Urine Color Urine Clarity Urine pH Ur Specific [place] Urine Protein Urine Ketones Urine Blood Urine Nitrite Urine Bilirubin Urine Urobilinogen Ur Leukocyte Esterase Urine RBC Urine WBC Ur Epithelial Cells Urine Crystals Urine Bacteria Urine Casts Urine Mucus Ur Culture Indicated? Urine Glucose 01/29/19 01/29/19 16:50 17:03 WBC RBC Hgb Hct MCV MCH MCHC RDW Plt Count MPV Immature Gran % Neutrophils % Band Neutrophils % Lymphocytes % Monocytes % Eosinophils % Basophils % Absolute Neutrophils Absolute Lymphocytes Absolute Monocytes Absolute Eosinophils Absolute Basophils Differential Comment RBC Morphology PT 11.0 INR 1.1 APTT 24.7 Sodium Potassium Chloride Carbon Dioxide Anion Gap BUN Creatinine Estimated GFR/1.73 m2 Glucose Lactate Calcium Magnesium Total Bilirubin AST ALT Alkaline Phosphatase Troponin I NT-Pro-B Natriuret Pep Total Protein Albumin Urine Color Yellow Urine Clarity Clear Urine pH 6.5 Ur Specific [place] 1.025 Urine Protein 100 H Urine Ketones 15 H Urine Blood Negative Urine Nitrite Negative Urine Bilirubin Negative Urine Urobilinogen 1.0 H Ur Leukocyte Esterase Negative Urine RBC 3-5 H Urine WBC 3-5 Ur Epithelial Cells Few Urine Crystals Negative Urine Bacteria Negative Urine Casts 20-50 coarsegranular Urine Mucus Negative Ur Culture Indicated? No Urine Glucose >=1000 H Last Vital Signs Temp 37.1 C 01/29/19 18:26 Pulse 44 L 01/29/19 19:03 Resp 41 H 01/29/19 19:03 BP 112/14 L 01/29/19 19:03 Pulse Ox 85 L 01/29/19 19:03
[2019-01-29 20:12] LABS: Troponin I 3.51 ng/mL (0.00-0.06)
[2019-01-29] MEDS: Normal Saline Flush 10 ML SYR IVP (21:50)
[2019-01-29] MEDS: Lactated Ringers 1,000 ML 80 ML IV (21:57)
[2019-01-29] MEDS: ACETAMINOPHEN 1,000 MG/100 ML BTL 400 MG IVPB (21:59)
[2019-01-29] MEDS: dilTIAZem 125 MG in Normal Saline 100 ML IV (23:02)
[2019-01-29] MEDS: Enoxaparin 40 MG/0.4 ML SYR SC (23:03)
[2019-01-29] MEDS: Aspirin 300 MG SUPP PR (23:03)
[2019-01-29] MEDS: Normal Saline 500 ML 15 ML IV (23:24)
[2019-01-30] VITALS (117 sets, daily range): BP systolic 95–143; BP diastolic 66–111; PULSE 64–187; RESP 14–41; TEMP 31–38.8; O2SAT 86–100
[2019-01-30] MEDS: PIPERACILLIN/TAZO 3.375 GM in Normal Saline 50 ML IVPB ×4 (01:21→20:23)
[2019-01-30] MEDS: Insulin Aspart 300 UNITS/3 ML PEN SC ×4 (02:09→20:00)
[2019-01-30] MEDS: ACETAMINOPHEN 1,000 MG/100 ML BTL 400 MG IVPB ×3 (03:26→17:53)
[2019-01-30] MEDS: Normal Saline 1,000 ML 80 ML IV (06:34)
[2019-01-30 07:17] LABS: HCT 38.7 % (40.0-50.0); HGB 13.3 g/dL (13.5-17.5); Mean Corp. HGB Concentration 34.4 g/dL (32.0-36.0); Mean Corpuscular Hemoglobin 30.1 pg (27.0-33.0); Mean Corpuscular Volume 87.6 fL (80-95); Mean Platelet Volume 10.9 fL (8.0-11.0); Platelet Count 165 x1000/uL (130-400); RBC 4.42 m/cumm (4.50-6.00); RBC Distribution Width 13.8 % (11.8-14.1); White Blood Cell Count 18.66 k/cumm (4.4-10.8)
[2019-01-30 07:21] LABS: Anion Gap 11.5 mmol/L (3-11); BUN 33 mg/dL (7-18); CO2 22.5 mmol/L (21.0-32.0); CREATININE 2.28 mg/dL (0.70-1.30); Calcium 8.6 mg/dL (8.5-10.1); Chloride 100 mmol/L (98-107); Estimated GFR 28.54 (mL/min/1.73m2); Glucose 397 mg/dL (70-100); Potassium 5.2 mmol/L (3.5-5.1); Sodium 134 mmol/L (136-145)
[2019-01-30 07:41] LABS: Troponin I 9.36 ng/mL (0.00-0.06)
[2019-01-30 08:49] LABS: Magnesium 1.6 mg/dL (1.8-2.4)
[2019-01-30 09:07] LABS: Procalcitonin 16.3 ng/mL
[2019-01-30] MEDS: Enoxaparin 120 MG/0.8 ML SYR 110 MG SC (09:07)
[2019-01-30] MEDS: Insulin Glargine 300 UNITS/3 ML PEN 15 UNITS SC (09:15)
--- NOTE | 2019-01-30 10:39 | INITIAL_ITS ---
- If Service Date Differs Date of service: 01/30/19 Time of Service: 10:39 Care Management Initial Assess REASON FOR HOSPITALIZATION:: Pneumonia, afib and nstemi with a history of severe aortic stenosis PAST MEDICAL HISTORY/PAST SURGICAL HISTORY:: Obesity, chronic back pain, impaired mobility, coronary artery disease, nicotine dependence, hyperlipidemia, urinary incontinence, Parkinson's tremor, diabetes type 2, schizophrenia. PREVIOUS FUNCTIONAL STATUS/SOCIAL/FAMILY SUPPORTS:: [facility]. He has a history of schizophrenia [facility] He uses a wheelchair for mobility. He has several family members that visit him at [facility] and take him outside frequently. CURRENT FUNCTIONAL STATUS:: Nawaf is asleep when CM arrives, per nursing he has been sleeping on his bipap throughout the day. Nawaf's heart rate continues to be elevated and he continues to be an ICU level of care today. ADVANCE DIRECTIVES:: COLST form on file agent Farrah Jiang Has patient been provided with information about the portal?: No Did the patient sign up for the portal?: No CODE STATUS:: DNR/DNI INSURANCE COVERAGE / FINANCIAL ISSUES:: Medicare and [email or web address] CURRENT HOME/COMMUNITY SERVICES/EQUIPMENT:: Lives at [facility], Wheelchair for mobility. PRIMARY CARE PHYSICIAN:: POTENTIAL DISCHARGE NEEDS:: Follow up with MD at [facility] PATIENT/FAMILY EDUCATION NEEDS:: Education r/t acute illness, limitaitons and follow up plan of care ANTICIPATED BARRIERS TO DISCHARGE:: None TRANSPORTATION:: Wheelchair van PLAN:: Nawaf remains ICU level of care he will [facility] to [facility] when medically ready. Consider palliative care consult with agent present [facility] form was completed at [facility]. CM to continue to support patient discharge planning and disposition.
[2019-01-30 11:03] LABS: Abs Immature Grans 0.05 k/cumm (0.0-0.09); Absolute Basophil Count 0.02 k/cumm (0.0-0.2); Absolute Monocyte Count 2.31 k/cumm (0.11-0.7); Absolute Neutrophil Count 12.09 k/cumm (1.2-6.7); Basophils % 0.1; HCT 37.9 % (40.0-50.0); HGB 12.8 g/dL (13.5-17.5); Immature Grans % 0.3; Lymphocytes % 9.2; Mean Corp. HGB Concentration 33.8 g/dL (32.0-36.0); Mean Corpuscular Hemoglobin 29.7 pg (27.0-33.0); Mean Corpuscular Volume 87.9 fL (80-95); Monocytes % 14.5; Neutrophils % 75.9; Platelet Count 165 x1000/uL (130-400); RBC 4.31 m/cumm (4.50-6.00); RBC Distribution Width 13.9 % (11.8-14.1); White Blood Cell Count 15.93 k/cumm (4.4-10.8)
[2019-01-30 11:04] LABS: Absolute Lymphocyte Count 1.47 k/cumm (1.2-3.4)
[2019-01-30 11:10] LABS: Lactate 2.5 mmol/L (0.6-1.4)
[2019-01-30 11:26] LABS: Diff Comment Agrees w/ Instrument; RBC Morphology Normal
[2019-01-30 11:48] LABS: Troponin I 8.26 ng/mL (0.00-0.06)
[2019-01-30] MEDS: MAGNESIUM SULFATE 1 GM/100 ML BAG IVPB (11:52)
[2019-01-30] MEDS: dilTIAZem 125 MG in Normal Saline 100 ML 7.5 MG IV (11:52)
--- NOTE | 2019-01-30 11:55 | PHARADMIT ---
Admission Pharmacy Clinical Review PNEUMONIA,AFIB Code Status DNR/DNI Current Weight 111.3 kg Renally Cleared and Narrow Therapeutic Index Meds CRCL ~26ML/MIN QTc Value / Action Taken 475(OLANZEPINE) BP Control, Fever 120/76 AFEBRILE Electrolytes reviewed MAG 1.6, K 5.2 DVT Prophylaxis FULL DOSE ENOXAPARIN RENALLY DOSE TO Q24H Opiate Usage / Scheduled Bowel Regimen Ordered PRN/PRN Plt/SCr for Heparin / Enoxaparin 165/2.28 INR for Warfarin 1.1 H/H stable, WBC/Bands 12.8/37.9 WBC 15.93 Antibiotic appropriateness VANCOMYCIN, PIP/TAZO Cultures and Sensitivities MRSA NOSE SCREEN PENDING, BC PENDING Surgical ABX d/c within 24 hr NA DM control / Insulin Dosing INSULIN ASPART AND GLARGINE Heart Failure (Check EF%) (DAYDAY's, B-Block, Diuretics) METOPROLOL, DILTIAZEM, FUROSEMIDE ONE TIME ORDER IV to PO Switch Home Meds Reviewed Home Meds Not Ordered furosemide 10 mg PO DAILY 12/04/15 [History Confirmed 01/29/19] omeprazole 20 mg PO DAILY@0730 12/04/15 [History Confirmed 01/29/19] Comments
[2019-01-30] MEDS: Metoprolol 5 MG/5 ML VIAL IVP ×6 (13:45→22:42)
[2019-01-30] MEDS: Normal Saline Flush 10 ML SYR IVP ×4 (14:42→22:59)
[2019-01-30 15:02] LABS: Lactate 1.8 mmol/L (0.6-1.4)
[2019-01-30 15:19] LABS: Anion Gap 7.1 mmol/L (3-11); BUN 40 mg/dL (7-18); CO2 29.9 mmol/L (21.0-32.0); CREATININE 2.37 mg/dL (0.70-1.30); Calcium 8.8 mg/dL (8.5-10.1); Chloride 101 mmol/L (98-107); Estimated GFR 27.29 (mL/min/1.73m2); Glucose 290 mg/dL (70-100); Potassium 4.9 mmol/L (3.5-5.1); Sodium 138 mmol/L (136-145)
[2019-01-30 15:25] LABS: Troponin I 6.59 ng/mL (0.00-0.06)
--- NOTE | 2019-01-30 16:37 | PGE_ITS ---
Date of Service Date of service: 01/30/19 Time of Service: 16:37 Assessment and Plan Assessment and plan (1) Sepsis: Status: Acute Assessment and plan: Sepsis on the basis of initial tachypnea, hypoxia, tachycardia, significant leukocytosis, and altered mental status with a pulmonary as the likely source. Also with evidence of organ dysfunction with significant elevation in lactic acid, ALEC, and acute respiratory distress requiring NIPPV. ?Continue treatment with broad-spectrum antibiotics including Vancomycin and PIP-Alexandre, currently day #1. -Monitor blood cultures, and obtain sputum culture if possible. MRSA screen also obtained and pending. -Careful IVF's with close monitoring, as below. Patient would most likely benefit from CVP monitoring and central line, but will not be pursued as per family and DPOA's wishes. (2) Pneumonia: Status: Acute Assessment and plan: Treatment as above. (3) ALEC (acute kidney injury): Status: Acute Assessment and plan: In the setting of acute illness, sepsis, and likely poor forward flow due to severe aortic stenosis with concurrent AFib with RVR - likely prerenal etiology. Given patient's continued and ongoing fevers, despite aortic stenosis, patient will continue to benefit from IV fluids. Will monitor renal function very closely, renally dose medications when appropriate, and avoid nephrotoxins. (4) NSTEMI (non-ST elevated myocardial infarction): Status: Acute Assessment and plan: Very likely demand related in the setting of sepsis, pneumonia, and new onset AFib - however, troponin leak of 9 along with ECG changes would lead to the likelihood of underlying CAD. -Initiated on BB therapy when able to or take oral intake. Need to be cautious with this given the degree of patient's aortic stenosis. ?Start daily aspirin and high potency statin. Initiate active anticoagulation, and given concurrent dill drip will start therapeutic but renally dosed enoxaparin this morning. ?Troponins have begun downtrending, but we will continue to monitor them closely. ECHO in the morning. (5) New onset a-fib: Status: Acute Assessment and plan: New onset AFib in the setting of underlying structural heart disease, significant tobacco abuse with concurrent COPD, and acute hypoxic pulmonary disease. Complicating matters is patient's severe , with need for not only volume management but rate control to avoid overt CHF. -Currently requiring Cardizem gtt. Will initiate low-dose oral BB when patient is able to take p.o., and IV Lopressor on a prn basis. ?Given the severity of aortic stenosis in the past, current NSTEMI, may benefit from repeat ECHO - ordered for tomorrow morning. -Continue cardiac monitoring. Also continue aggressive management of underlying infection and hypoxia, in order to assist in rate control. (6) Aortic stenosis: Status: Chronic Assessment and plan: As above. Currently requiring IVF's due to sepsis, but volume control will become important as will rate control for patient's Afib. Will repeat echo as above. Continue Cardizem gtt. and attempt to wean as possible, oral BB when able, and IV Lopressor as needed. Digoxin may be risky given patient's current renal failure, but if required could also consider an antiarrhythmic for better control. (7) Schizophrenia: Status: Chronic Assessment and plan: When able to take oral medications will resume patient's Depakote, Zyprexa, and fluphenazine. (8) Diabetes type 2, uncontrolled: Status: Chronic Assessment and plan: Initial hyperglycemia in the setting of acute infection and NSTEMI. Will initiate patient's standing basal insulin along with sliding scale coverage, but given n.p.o. status will manage with half dose Lantus and titrate as appropriate. (9) DVT prophylaxis: Status: Acute Assessment and plan: On active anticoagulation as above. Initiate PPI therapy for GI prophylaxis as well. (10) Advance directive on file: Status: Acute Assessment and plan: DNR/DNI. No aggressive measures, including procedures or transfers to a tertiary center, but with complement of medical management as described above. Subjective Subjective Interval history since last seen: 68 year old long-term resident, with a prior history of Tobacco use, COPD, and Severe , admitted from [facility] Emergency Department on 01/29 with a diagnosis of Sepsis with a pulmonary source, NSTEMI, ALEC, and new onset Afib with RVR. Mr. Plascencia has a Past Medical History significant for schizophrenia, Diastolic CHF, Tobacco abuse with concurrent COPD, DM, Dyslipidemia, and Obesity. 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 The patient was reported to have progressive dyspnea over the course of the day of his admission, ultimately requiring oxygen - EMS found him on arrival to be hypoxic with oxygen saturation in the 70%'s. He was placed on BiPAP and transported to the ED. Work-up was noteworthy for a significant Leukocytosis, vastly elevated Lactic Acid, evidence of ALEC, and a Pro-BNP and Troponin elevation with EKG changes. His urinalysis was negative for infection, but CXR showed upper and lower lobe infiltrates. Patient was initially afebrile but has since had elevated temps. He was also found to be in Afib with a Rapid Ventricular Rate. At that time the patient's goals of care were discussed with his sister Farrah Jiang, who acts as his DPOA, and code status was confirmed as DNR/DNI. She also wished for him to be managed medically without wish for transfer to tertiary center, or any invasive procedures. Mr. Plascencia was referred for admission for further evaluation and treatment. This morning Mr. Plascencia appears overall improved, although with a creatinine that appears to be worsening despite treatment overnight. He initially converted to sinus rhythm, but again slipped into atrial fibrillation with a rapid rate. His lactate is improved from 8 to evaluate 1.8 this afternoon, and his troponin has down trended from a peak of 9.362 6.59. Leukocytosis has improved significantly, with a WBC that is decreased from a value of 29 to 15 by late this morning. He does however have a fever this afternoon, but appears improved from a respiratory standpoint. No other events reported. Exam Narrative Exam Narrative: General: Patient appears ill and somewhat toxic, asleep in the morning but arousable by afternoon Neck: Supple CV: Regular by initial exam, Irregular and tachycardic in the afternoon with a 3/6 RUSB murmur appreciated Pulmonary: Diffusely rhonchorous with scattered mild wheezing on limited anterior and lateral exam Abdomen: + Bowel Sounds, soft, nontender, nondistended, obese in contour. Vascular: + b/l lower extremity edema Psych: Normal mood and affect. Objective Objective Clinical Data: Abnormal lab results 01/29/19 01/29/19 01/29/19 Range/Units 16:50 16:50 16:50 WBC 29.68 H* (4.4-10.8) k/cumm RBC (4.50-6.00) m/cumm Hgb (13.5-17.5) g/dL Hct (40.0-50.0) % Absolute Neutrophils 19.00 H (1.2-6.7) k/cumm Absolute Lymphocytes 7.72 H (1.2-3.4) k/cumm Absolute Monocytes 2.67 H (0.11-0.7) k/cumm Sodium (136-145) mmol/L Potassium (3.5-5.1) mmol/L Chloride 97 L (98-107) mmol/L Anion Gap 17.3 H (3-11) mmol/L BUN (7-18) mg/dL Creatinine 1.34 H (0.70-1.30) mg/dL Glucose 344 H (70-100) mg/dL Lactate 8.0 H* (0.6-1.4) mmol/L Magnesium 1.7 L (1.8-2.4) mg/dL AST 45 H (15-37) U/L Troponin I 0.46 H* (0.00-0.06) ng/mL NT-Pro-B Natriuret Pep 3648 H ( - 299) pg/mL Albumin 3.2 L (3.4-5.0) g/dL Urine Protein (Negative) mg/dL Urine Ketones (Negative) mg/dL Urine Urobilinogen (Up TO 0.2) EU/dL Urine RBC (0-2) Urine Glucose (Negative) mg/dL 01/29/19 01/29/19 01/30/19 Range/Units 17:03 19:46 06:22 WBC (4.4-10.8) k/cumm RBC (4.50-6.00) m/cumm Hgb (13.5-17.5) g/dL Hct (40.0-50.0) % Absolute Neutrophils (1.2-6.7) k/cumm Absolute Lymphocytes (1.2-3.4) k/cumm Absolute Monocytes (0.11-0.7) k/cumm Sodium (136-145) mmol/L Potassium (3.5-5.1) mmol/L Chloride (98-107) mmol/L Anion Gap (3-11) mmol/L BUN (7-18) mg/dL Creatinine (0.70-1.30) mg/dL Glucose (70-100) mg/dL Lactate (0.6-1.4) mmol/L Magnesium (1.8-2.4) mg/dL AST (15-37) U/L Troponin I 3.51 H* 9.36 H* (0.00-0.06) ng/mL NT-Pro-B Natriuret Pep ( - 299) pg/mL Albumin (3.4-5.0) g/dL Urine Protein 100 H (Negative) mg/dL Urine Ketones 15 H (Negative) mg/dL Urine Urobilinogen 1.0 H (Up TO 0.2) EU/dL Urine RBC 3-5 H (0-2) Urine Glucose >=1000 H (Negative) mg/dL 01/30/19 01/30/19 01/30/19 Range/Units 06:22 06:22 06:22 WBC 18.66 H D (4.4-10.8) k/cumm RBC 4.42 L (4.50-6.00) m/cumm Hgb 13.3 L (13.5-17.5) g/dL Hct 38.7 L (40.0-50.0) % Absolute Neutrophils (1.2-6.7) k/cumm Absolute Lymphocytes (1.2-3.4) k/cumm Absolute Monocytes (0.11-0.7) k/cumm Sodium 134 L (136-145) mmol/L Potassium 5.2 H D (3.5-5.1) mmol/L Chloride (98-107) mmol/L Anion Gap 11.5 H (3-11) mmol/L BUN 33 H D (7-18) mg/dL Creatinine 2.28 H D (0.70-1.30) mg/dL Glucose 397 H (70-100) mg/dL Lactate (0.6-1.4) mmol/L Magnesium 1.6 L (1.8-2.4) mg/dL AST (15-37) U/L Troponin I (0.00-0.06) ng/mL NT-Pro-B Natriuret Pep ( - 299) pg/mL Albumin (3.4-5.0) g/dL Urine Protein (Negative) mg/dL Urine Ketones (Negative) mg/dL Urine Urobilinogen (Up TO 0.2) EU/dL Urine RBC (0-2) Urine Glucose (Negative) mg/dL 01/30/19 01/30/19 01/30/19 Range/Units 10:53 10:53 10:53 WBC 15.93 H (4.4-10.8) k/cumm RBC 4.31 L (4.50-6.00) m/cumm Hgb 12.8 L (13.5-17.5) g/dL Hct 37.9 L (40.0-50.0) % Absolute Neutrophils 12.09 H (1.2-6.7) k/cumm Absolute Lymphocytes (1.2-3.4) k/cumm Absolute Monocytes 2.31 H (0.11-0.7) k/cumm Sodium (136-145) mmol/L Potassium (3.5-5.1) mmol/L Chloride (98-107) mmol/L Anion Gap (3-11) mmol/L BUN (7-18) mg/dL Creatinine (0.70-1.30) mg/dL Glucose (70-100) mg/dL Lactate 2.5 H* (0.6-1.4) mmol/L Magnesium (1.8-2.4) mg/dL AST (15-37) U/L Troponin I 8.26 H* (0.00-0.06) ng/mL NT-Pro-B Natriuret Pep ( - 299) pg/mL Albumin (3.4-5.0) g/dL Urine Protein (Negative) mg/dL Urine Ketones (Negative) mg/dL Urine Urobilinogen (Up TO 0.2) EU/dL Urine RBC (0-2) Urine Glucose (Negative) mg/dL 01/30/19 01/30/19 Range/Units 14:57 14:57 WBC (4.4-10.8) k/cumm RBC (4.50-6.00) m/cumm Hgb (13.5-17.5) g/dL Hct (40.0-50.0) % Absolute Neutrophils (1.2-6.7) k/cumm Absolute Lymphocytes (1.2-3.4) k/cumm Absolute Monocytes (0.11-0.7) k/cumm Sodium (136-145) mmol/L Potassium (3.5-5.1) mmol/L Chloride (98-107) mmol/L Anion Gap (3-11) mmol/L BUN 40 H (7-18) mg/dL Creatinine 2.37 H (0.70-1.30) mg/dL Glucose 290 H D (70-100) mg/dL Lactate 1.8 H (0.6-1.4) mmol/L Magnesium (1.8-2.4) mg/dL AST (15-37) U/L Troponin I 6.59 H* (0.00-0.06) ng/mL NT-Pro-B Natriuret Pep ( - 299) pg/mL Albumin (3.4-5.0) g/dL Urine Protein (Negative) mg/dL Urine Ketones (Negative) mg/dL Urine Urobilinogen (Up TO 0.2) EU/dL Urine RBC (0-2) Urine Glucose (Negative) mg/dL Vital Signs Temperature 37.3 C 01/30/19 09:30 Temperature Source Temporal Artery Scan 01/30/19 09:30 Pulse 126 H 01/30/19 13:45 Pulse 93 H 01/30/19 12:00 Respiratory Rate 27 H 01/30/19 12:00 Respiratory Effort Accessory Muscle Use 01/30/19 12:54 Respiratory Depth Shallow 01/30/19 12:54 Respiratory Pattern Tachypnea 01/30/19 12:54 Blood Pressure 118/82 01/30/19 12:00 Blood Pressure Mean 90 01/30/19 12:00 Blood Pressure Position Sitting 01/29/19 21:21 Pulse Oximetry 100 01/30/19 12:00 Oxygen Delivery Method Bi-pap 01/30/19 09:30 Oxygen Flow Rate 40 01/30/19 13:51 Fraction of Inspired Oxygen (FIO2) 41 01/30/19 13:51 Pain Level 0 01/29/19 20:52 Intake & Output 01/29/19 01/30/19 01/30/19 23:59 11:59 23:59 Intake Total 673.333 / 350.812 2870.667 / 1122.042 77.375 / 1122.042 Output Total 110 / 110 450 / 950 500 / 950 Balance 563.333 / 563.333 594.667 / 172.042 -422.625 / 172.042 Weight 111.6 kg 111.3 kg Intake: IV 673.333 / 690.562 0669.667 / 1122.042 77.375 / 1122.042 Output: Urine 110 / 110 450 / 950 500 / 950 Other: Urine Color Dark America Dark America Urine Appearance Clear Clear Comment yan is patent and draining yellow urine with some sediment. YAN IN PLACE YAN IN PLACE Laboratory Results WBC 15.93 k/cumm (4.4-10.8) H 01/30/19 10:53 RBC 4.31 m/cumm (4.50-6.00) L 01/30/19 10:53 Hgb 12.8 g/dL (13.5-17.5) L 01/30/19 10:53 Hct 37.9 % (40.0-50.0) L 01/30/19 10:53 MCV 87.9 fL (80-95) 01/30/19 10:53 MCH 29.7 pg (27.0-33.0) 01/30/19 10:53 MCHC 33.8 g/dL (32.0-36.0) 01/30/19 10:53 RDW 13.9 % (11.8-14.1) 01/30/19 10:53 Plt Count 165 x1000/uL (130-400) 01/30/19 10:53 MPV 10.0 fL (8.0-11.0) 01/30/19 10:53 Immature Gran % 0.3 01/30/19 10:53 Neutrophils % 75.9 01/30/19 10:53 Band Neutrophils % 2.0 % 01/29/19 16:50 Lymphocytes % 9.2 01/30/19 10:53 Monocytes % 14.5 01/30/19 10:53 Eosinophils % 0.0 01/30/19 10:53 Basophils % 0.1 01/30/19 10:53 Absolute Neutrophils 12.09 k/cumm (1.2-6.7) H 01/30/19 10:53 Absolute Lymphocytes 1.47 k/cumm (1.2-3.4) 01/30/19 10:53 Absolute Monocytes 2.31 k/cumm (0.11-0.7) H 01/30/19 10:53 Absolute Eosinophils 0.00 k/cumm (0.0-0.7) 01/30/19 10:53 Absolute Basophils 0.02 k/cumm (0.0-0.2) 01/30/19 10:53 Differential Comment Agrees w/ instrument 01/30/19 10:53 RBC Morphology Normal 01/30/19 10:53 PT 11.0 sec (9.3-11.0) 01/29/19 16:50 INR 1.1 (0.9-1.1) 01/29/19 16:50 APTT 24.7 sec (21.0-31.4) 01/29/19 16:50 Sample Site Cancelled 01/29/19 17:07 pCO2 Cancelled 01/29/19 17:07 pO2 Cancelled 01/29/19 17:07 O2 Saturation Cancelled 01/29/19 17:07 ABG pH Cancelled 01/29/19 17:07 ABG HCO3 Cancelled 01/29/19 17:07 ABG Total CO2 Cancelled 01/29/19 17:07 ABG Base Excess Cancelled 01/29/19 17:07 Oxygen Liter Flow Cancelled 01/29/19 17:07 FiO2 Cancelled 01/29/19 17:07 Sodium 138 mmol/L (136-145) 01/30/19 14:57 Potassium 4.9 mmol/L (3.5-5.1) 01/30/19 14:57 Chloride 101 mmol/L (98-107) 01/30/19 14:57 Carbon Dioxide 29.9 mmol/L (21.0-32.0) 01/30/19 14:57 Anion Gap 7.1 mmol/L (3-11) 01/30/19 14:57 BUN 40 mg/dL (7-18) H 01/30/19 14:57 Creatinine 2.37 mg/dL (0.70-1.30) H 01/30/19 14:57 Estimated GFR/1.73 m2 27.29 (mL/min/1.73m2) 01/30/19 14:57 Glucose 290 mg/dL (70-100) H D 01/30/19 14:57 Lactate 1.8 mmol/L (0.6-1.4) H 01/30/19 14:57 Calcium 8.8 mg/dL (8.5-10.1) 01/30/19 14:57 Magnesium 1.6 mg/dL (1.8-2.4) L 01/30/19 06:22 Total Bilirubin 0.7 mg/dL (0.2-1.0) 01/29/19 16:50 AST 45 U/L (15-37) H 01/29/19 16:50 ALT 38 U/L (16-63) 01/29/19 16:50 Alkaline Phosphatase 104 U/L (46-116) 01/29/19 16:50 Troponin I 6.59 ng/mL (0.00-0.06) H* 01/30/19 14:57 NT-Pro-B Natriuret Pep 3648 pg/mL (-299) H 01/29/19 16:50 Total Protein 8.0 g/dL (6.4-8.2) 01/29/19 16:50 Albumin 3.2 g/dL (3.4-5.0) L 01/29/19 16:50 Procalcitonin 16.3 ng/mL 01/30/19 06:22 Urine Color Yellow (Yellow) 01/29/19 17:03 Urine Clarity Clear (Clear) 01/29/19 17:03 Urine pH 6.5 (5-8) 01/29/19 17:03 Ur Specific [place] 1.025 (1.005-1.025) 01/29/19 17:03 Urine Protein 100 mg/dL (Negative) H 01/29/19 17:03 Urine Ketones 15 mg/dL (Negative) H 01/29/19 17:03 Urine Blood Negative (Negative) 01/29/19 17:03 Urine Nitrite Negative (Negative) 01/29/19 17:03 Urine Bilirubin Negative (Negative) 01/29/19 17:03 Urine Urobilinogen 1.0 EU/dL (Up TO 0.2) H 01/29/19 17:03 Ur Leukocyte Esterase Negative (Negative) 01/29/19 17:03 Urine RBC 3-5 (0-2) H 01/29/19 17:03 Urine WBC 3-5 HPF (0-5) 01/29/19 17:03 Ur Epithelial Cells Few HPF (Negative) 01/29/19 17:03 Urine Crystals Negative HPF (Negative) 01/29/19 17:03 Urine Bacteria Negative HPF (Negative) 01/29/19 17:03 Urine Casts 20-50 coarsegranular LPF (Negative) 01/29/19 17:03 Urine Mucus Negative (Negative) 01/29/19 17:03 Ur Culture Indicated? No 01/29/19 17:03 Urine Glucose >=1000 mg/dL (Negative) H 01/29/19 17:03
[2019-01-30] MEDS: Normal Saline 1,000 ML 100 ML IV (17:54)
[2019-01-30 18:25] LABS: Vancomycin, Trough 5.8 ug/mL (10.0-20.0)
[2019-01-30] MEDS: dilTIAZem 125 MG in Normal Saline 100 ML 15 MG IV (21:01)
[2019-01-30] MEDS: Pantoprazole 40 MG VIAL IVP (21:36)
[2019-01-30] MEDS: Insulin Glargine 300 UNITS/3 ML PEN 11 UNITS SC (22:01)
[2019-01-30] MEDS: Furosemide 100 MG/10 ML VIAL IVP (23:23)
[2019-01-31] VITALS (82 sets, daily range): BP systolic 79–170; BP diastolic 42–120; PULSE 27–159; RESP 13–47; TEMP 38–39.3; O2SAT 85–100
[2019-01-31] MEDS: ACETAMINOPHEN 1,000 MG/100 ML BTL 400 MG IVPB (00:03)
[2019-01-31] MEDS: Metoprolol 5 MG/5 ML VIAL IVP (00:19)
[2019-01-31] MEDS: Normal Saline Flush 10 ML SYR IVP ×3 (00:20→09:13)
[2019-01-31] MEDS: Insulin Aspart 300 UNITS/3 ML PEN SC ×2 (03:40→09:08)
[2019-01-31] MEDS: dilTIAZem 125 MG in Normal Saline 100 ML 20 MG IV (04:01)
[2019-01-31] MEDS: PIPERACILLIN/TAZO 3.375 GM in Normal Saline 50 ML IVPB ×2 (04:12→08:24)
[2019-01-31 06:56] LABS: Abs Immature Grans 0.04 k/cumm (0.0-0.09); Absolute Lymphocyte Count 1.85 k/cumm (1.2-3.4); Absolute Monocyte Count 1.92 k/cumm (0.11-0.7); Basophils % 0.1; HCT 38.6 % (40.0-50.0); HGB 12.8 g/dL (13.5-17.5); Immature Grans % 0.3; Lymphocytes % 13.6; Mean Corp. HGB Concentration 33.2 g/dL (32.0-36.0); Mean Corpuscular Hemoglobin 29.5 pg (27.0-33.0); Mean Corpuscular Volume 88.9 fL (80-95); Mean Platelet Volume 10.4 fL (8.0-11.0); Monocytes % 14.1; Neutrophils % 71.9; Platelet Count 182 x1000/uL (130-400); RBC 4.34 m/cumm (4.50-6.00)
[2019-01-31 06:59] LABS: Absolute Basophil Count 0.01 k/cumm (0.0-0.2); Absolute Neutrophil Count 9.78 k/cumm (1.2-6.7)
[2019-01-31 07:19] LABS: Anion Gap 11.3 mmol/L (3-11); BUN 54 mg/dL (7-18); CO2 26.7 mmol/L (21.0-32.0); CREATININE 2.72 mg/dL (0.70-1.30); Calcium 8.2 mg/dL (8.5-10.1); Chloride 104 mmol/L (98-107); Estimated GFR 23.28 (mL/min/1.73m2); Glucose 295 mg/dL (70-100); Magnesium 1.9 mg/dL (1.8-2.4); Potassium 4.3 mmol/L (3.5-5.1); Sodium 142 mmol/L (136-145)
[2019-01-31 07:22] LABS: Troponin I 5.56 ng/mL (0.00-0.06)
--- NOTE | 2019-01-31 07:28 | DI.RAD_ITS ---
EXAM: XR PORTABLE CHEST AP INDICATION: pneumonia. COMPARISON: XR PORTABLE CHEST AP from 01/29/2019 TECHNIQUE: 2D digital imaging was performed. FINDINGS: The heart is again noted to be enlarged. The aorta is calcified. Oxygen tubing overlies the left s tomasa of the chest. EKG leads are also present over right side. There are increased densities seen in both right upper and right lower lung mccall, more apparent than on the previous day's exam. No def inite effusion is seen. IMPRESSION: Right upper and lower lobe pneumonia.
[2019-01-31 08:08] LABS: Bilirubin Negative (Negative); Blood Large (Negative); Clarity Clear (Clear); Glucose Negative (Negative); Ketones Negative (Negative); Leukocyte Esterase Negative (Negative); Nitrite Negative (Negative); Specific Gravity 1.015 (1.005-1.025); Urobilinogen 0.2 EU/dL (Up TO 0.2)
[2019-01-31] MEDS: Enoxaparin 120 MG/0.8 ML SYR 110 MG SC (08:25)
[2019-01-31 08:35] LABS: Bacteria Rare HPF (Negative); Crystals Few Amorphous HPF (Negative); Epithelial Cells Negative HPF (Negative); Mucus Negative (Negative); RBC >50 (0-2)
[2019-01-31 08:39] LABS: C & S Indicated? C&S Done As Ordered
[2019-01-31] MEDS: ESMOLOL 2,500 MG/250 ML BAG 34.198 MG IV (08:52)
[2019-01-31] MEDS: Insulin Glargine 300 UNITS/3 ML PEN 15 UNITS SC (09:09)
--- NOTE | 2019-01-31 09:58 | PDOC.CMPRO ---
Care Management Progress Note S/O: A: 68 year old male admitted to [facility] 01/29/19 for Pneumonia, AFIB P: Nawaf remains ICU level of care he will [facility] medically ready. Consider palliative care consult with agent present due to concerns around Nawaf's ongoing medical decline per MD. COLST form was completed at [facility]. CM to continue to support patient discharge planning and disposition.
[2019-01-31] MEDS: levoFLOXacin 750 MG/150 ML BAG 100 MG IVPB (10:28)
[2019-01-31] MEDS: ESMOLOL 2,500 MG/250 ML BAG 205 MG IV (11:26)
--- NOTE | 2019-01-31 14:55 | CHAPLAIN ---
I visited with Nawaf's sister this morning. She told me that Nawaf was unresponsive at the time. He hours later, while his sister was present. She said that she said a prayer with him and that nurse, Mar, had been very helpful. She was going to go to [facility] to get some of Nawaf's belongings and then return he to meet the director of radiology who was coming from [place].
--- NOTE | 2019-01-31 14:57 | W.PM.DS.N ---
Date of service: 01/31/19 Time of Service: 14:57 DS: Diagnosis Discharge Diagnosis (1) Sepsis: Status: Acute (2) Pneumonia: Status: Acute (3) ALEC (acute kidney injury): Status: Acute (4) NSTEMI (non-ST elevated myocardial infarction): Status: Acute (5) New onset a-fib: Status: Acute (6) Aortic stenosis: Status: Chronic (7) Schizophrenia: Status: Chronic (8) Diabetes type 2, uncontrolled: Status: Chronic (9) DVT prophylaxis: Status: Acute (10) Advance directive on file: Status: Acute Discharge Plan Disposition Patient Disposition: Condition: Critical Discharge Details Chief Complaint: SOB Clinical Impression: Pneumonia involving right lung, Congestive heart failure, Acidosis, lactic Reason For Visit: PNEUMONIA, AFIB Admit Date/Time: 01/29/19 19:31 Admit Provider: Jamie Ortega Attending Provider: Jamie Ortega Primary Care Provider: Lamar Gerber ED Provider: Georges Simon Hospital Course Hospital Course: Chief Complaint: Hypoxia HPI: 68 year old half-way resident, with a prior history of Tobacco use, COPD, and Severe , admitted from [facility] Emergency Department on 01/29 with a diagnosis of Sepsis with a pulmonary source, NSTEMI, ALEC, and new onset Afib with RVR. Mr. Plascencia had a Past Medical History significant for schizophrenia, Diastolic CHF, Tobacco abuse with concurrent COPD, DM, Dyslipidemia, and Obesity. 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 The patient was reported to have progressive dyspnea over the course of the day of his admission, ultimately requiring oxygen - EMS found him on arrival to be hypoxic with oxygen saturation in the 70%'s. He was placed on BiPAP and transported to the ED where he was found to be acutely toxic and ill appearing. Work-up was noteworthy for a significant Leukocytosis, vastly elevated Lactic Acid, evidence of ALEC, and a Pro-BNP and Troponin elevation with EKG changes. His urinalysis was negative for infection, but CXR showed upper and lower lobe infiltrates. Patient was initially afebrile but had since had elevated temps. He was also found to be in Afib with a Rapid Ventricular Rate. At that time the patient's goals of care were discussed with his sister Farrah Jiang, who acts as his DPOA, and code status was confirmed as DNR/DNI. She also wished for him to be managed medically without wish for transfer to tertiary center, any aggressive measures, or any invasive procedures. Mr. Plascencia was referred for admission for further evaluation and treatment. Although initially Mr. Plascencia appeared overall improved, including with a downtrending WBC, Lactate, and Troponin, His HR continued to be tachycardic and irregular, without adequate control despite maximization of Cardizem drip and frequent Lopressor IV pushes. Given the severity of his aortic stenosis rate controlled was deemed paramount, especially given that under his septic course he would require IV fluids, and with his RVR the patient was becoming volume overloaded and in fact required a dose of furosemide overnight. The continued tachyarrhythmia was likely adrenergic based in the setting of continued fevers despite broad-spectrum antibiotic therapy as well as essentially standing doses of IV Tylenol. In fact overnight the patient's regimen was even increased to include levofloxacin, in addition to vancomycin and Zosyn. As Cardizem had proved ineffective this medication was discontinued, and he was initiated on an esmolol drip in addition to amiodarone by the covering physician Dr. Neeraj Rincon overnight. With the fevers repeat blood cultures were drawn, and a repeat urinalysis was sent off as well. Original blood cultures showed no growth as of this time. A repeat chest x-ray was also obtained, showing worsening infiltrative process in the right upper and lower lobes. Consideration was given for the potential for aspiration in this patient, but antibiotic coverage was appropriate. Labs from the morning were reviewed and showed evidence of improving leukocytosis, stable lactate at 2 which was down from a value of 2.5 yesterday morning and 8 at time of admission, a troponin value of 5.5 that was down from 6.5 yesterday afternoon and from a peak of 9.36 yesterday morning -in fact lab work looked improved with the exception of mildly worsened creatinine. Electrolytes were adequate, including a normal-appearing potassium and magnesium. Anion gap was borderline at 11.3, but improved from an original value of 17.3. At approximately 12:15 this afternoon Mr. Plascencia developed an acute onset of junctional rhythm, and both amiodarone and Cardizem were immediately shut off. Order was given for stat atropine, and by the time of arrival at bedside the patient had developed sinus arrest. His DNR/DNI status was honored, and time of was reported at 12:20 PM on 01/31/2019. Discharge Data Cause of : Sepsis DS: Summary Status at Discharge Functional status at discharge: independent ambulation Overall status at discharge: patient is back to baseline Mental Status: mental status grossly normal Speech and Movement: speech and movement normal Mood: congruent mood Affect: normal affect Exam Psych Mental Status: mental status grossly normal Speech and Movement: speech and movement normal Mood: congruent mood Affect: normal affect DS: Data Vitals/I&O Vitals and I&O: Vital Signs Temperature 38.6 C H 01/31/19 08:00 Temperature Source Temporal Artery Scan 01/31/19 08:00 Pulse 159 H 01/31/19 12:00 Pulse 121 H 01/31/19 12:10 Respiratory Rate 24 01/31/19 12:10 Respiratory Effort Accessory Muscle Use 01/31/19 08:00 Respiratory Depth Retractive 01/31/19 04:34 Respiratory Pattern Normal 01/31/19 08:00 Blood Pressure 133/120 H 01/31/19 12:00 Blood Pressure Mean 124 01/31/19 12:00 Blood Pressure Position Sitting 01/29/19 21:21 Pulse Oximetry 93 L 01/31/19 12:01 Oxygen Delivery Method Bi-pap 01/31/19 04:34 Oxygen Flow Rate 40 01/30/19 13:51 Fraction of Inspired Oxygen (FIO2) 35 01/31/19 11:00 Pain Level 0 01/29/19 20:52 Comment 01/31/19 06:15 Intake & Output 01/30/19 01/31/19 01/31/19 23:59 11:59 23:59 Intake Total 2148.792 / 3193.459 834.972 / 834.972 Output Total 1025 / 1475 1400 / 1400 Balance 1123.792 / 1718.459 -565.028 / -565.028 Weight 114.2 kg Intake: IV 2148.792 / 3193.459 834.972 / 834.972 Output: Urine 1025 / 1475 1400 / 1400 Other: Urine Color Yellow Pale Yellow Urine Appearance Clear Clear Comment giving IV push Lasix at this time. Prior shift nurse emptied yan at this time. yan patent and draining pale urine. IV lasix 100mg given at 2323 Data Completed and Pending Labs on day of discharge: Labs from last 24 hours 01/31/19 01/31/19 01/31/19 Unknown 09:17 07:55 WBC RBC Hgb Hct MCV MCH MCHC RDW Plt Count MPV Immature Gran % Neutrophils % Lymphocytes % Monocytes % Eosinophils % Basophils % Absolute Neutrophils Absolute Lymphocytes Absolute Monocytes Absolute Eosinophils Absolute Basophils Sample Site pCO2 pO2 O2 Saturation ABG pH ABG HCO3 ABG Total CO2 ABG Base Excess Oxygen Liter Flow FiO2 Sodium Potassium Chloride Carbon Dioxide Anion Gap BUN Creatinine Estimated GFR/1.73 m2 Glucose Lactate 2.0 H Calcium Magnesium Troponin I Urine Color Yellow Urine Clarity Clear Urine pH 5.0 Ur Specific [place] 1.015 Urine Protein 30 H Urine Ketones Negative Urine Blood Large H Urine Nitrite Negative Urine Bilirubin Negative Urine Urobilinogen 0.2 Ur Leukocyte Esterase Negative Urine RBC >50 H Urine WBC 3-5 Ur Epithelial Cells Negative Urine Crystals Few amorphous Urine Bacteria Rare Urine Casts 5-10 coarse granular Urine Mucus Negative Urine Other Ur Culture Indicated? C&s done as ordered Urine Glucose Negative Vancomycin Trough Legionella Source Pending Legionella DNA (PCR) Pending 01/31/19 01/31/19 01/30/19 06:15 06:15 18:05 WBC 13.60 H RBC 4.34 L Hgb 12.8 L Hct 38.6 L MCV 88.9 MCH 29.5 MCHC 33.2 RDW 14.0 Plt Count 182 MPV 10.4 Immature Gran % 0.3 Neutrophils % 71.9 Lymphocytes % 13.6 Monocytes % 14.1 Eosinophils % 0.0 Basophils % 0.1 Absolute Neutrophils 9.78 H Absolute Lymphocytes 1.85 Absolute Monocytes 1.92 H Absolute Eosinophils 0.00 Absolute Basophils 0.01 Sample Site pCO2 pO2 O2 Saturation ABG pH ABG HCO3 ABG Total CO2 ABG Base Excess Oxygen Liter Flow FiO2 Sodium 142 Potassium 4.3 Chloride 104 Carbon Dioxide 26.7 Anion Gap 11.3 H BUN 54 H D Creatinine 2.72 H Estimated GFR/1.73 m2 23.28 Glucose 295 H Lactate Calcium 8.2 L Magnesium 1.9 Troponin I 5.56 H* Urine Color Urine Clarity Urine pH Ur Specific [place] Urine Protein Urine Ketones Urine Blood Urine Nitrite Urine Bilirubin Urine Urobilinogen Ur Leukocyte Esterase Urine RBC Urine WBC Ur Epithelial Cells Urine Crystals Urine Bacteria Urine Casts Urine Mucus Urine Other Ur Culture Indicated? Urine Glucose Vancomycin Trough 5.8 L Legionella Source Legionella DNA (PCR) 01/30/19 01/30/19 01/29/19 14:57 14:57 17:07 WBC RBC Hgb Hct MCV MCH MCHC RDW Plt Count MPV Immature Gran % Neutrophils % Lymphocytes % Monocytes % Eosinophils % Basophils % Absolute Neutrophils Absolute Lymphocytes Absolute Monocytes Absolute Eosinophils Absolute Basophils Sample Site Cancelled pCO2 Cancelled pO2 Cancelled O2 Saturation Cancelled ABG pH Cancelled ABG HCO3 Cancelled ABG Total CO2 Cancelled ABG Base Excess Cancelled Oxygen Liter Flow Cancelled FiO2 Cancelled Sodium 138 Potassium 4.9 Chloride 101 Carbon Dioxide 29.9 Anion Gap 7.1 BUN 40 H Creatinine 2.37 H Estimated GFR/1.73 m2 27.29 Glucose 290 H D Lactate 1.8 H Calcium 8.8 Magnesium Troponin I 6.59 H* Urine Color Urine Clarity Urine pH Ur Specific [place] Urine Protein Urine Ketones Urine Blood Urine Nitrite Urine Bilirubin Urine Urobilinogen Ur Leukocyte Esterase Urine RBC Urine WBC Ur Epithelial Cells Urine Crystals Urine Bacteria Urine Casts Urine Mucus Urine Other Ur Culture Indicated? Urine Glucose Vancomycin Trough Legionella Source Legionella DNA (PCR) 01/31/19 07:40 Blood Blood Culture - Pending 01/31/19 07:50 Blood Blood Culture - Pending 01/31/19 07:55 Urine - Cath Yan Indwelling Urine Culture - Pending Preliminary micro results at discharge 01/31/19 07:40 Blood Culture - Pending Blood 01/31/19 07:50 Blood Culture - Pending Blood 01/31/19 07:55 Urine Culture - Pending Urine - Cath Yan Indwelling 01/29/19 17:48 Blood Culture - Preliminary Blood NO GROWTH 24 HOURS 01/29/19 17:30 Blood Culture - Preliminary Blood NO GROWTH 24 HOURS PFSH Social History Smoking/Tobacco Use Status: Former Tobacco Use Drug use: Never Do you feel safe in your relationship?: Yes
== END 2019-01-31 15:45 | disposition expired | DRG 193 ==
LOC: ER 21:14 → ICU 21:20
PROVIDERS: Internal Medicine; Admitting Provider General Practice; Emergency Provider Emergency Medicine; PCP Family Medicine; Visit Provider Internal Medicine
DX: J18.9 Pneumonia, unspecified organism (principal); A41.1 Sepsis due to other specified staphylococcus; I21.4 Non-ST elevation (NSTEMI) myocardial infarction; N17.9 Acute kidney failure, unspecified; J44.0 Chronic obstructive pulmonary disease with (acute) lower respiratory infection; I50.32 Chronic diastolic (congestive) heart failure; G21.11 Neuroleptic induced parkinsonism; Z68.41 Body mass index [BMI] 40.0-44.9, adult; R06.03 Acute respiratory distress; I48.91 Unspecified atrial fibrillation; I35.0 Nonrheumatic aortic (valve) stenosis; F20.9 Schizophrenia, unspecified; E11.65 Type 2 diabetes mellitus with hyperglycemia; Z87.891 Personal history of nicotine dependence; E78.5 Hyperlipidemia, unspecified; T43.505A Adverse effect of unspecified antipsychotics and neuroleptics, initial encounter; E66.9 Obesity, unspecified; Z99.3 Dependence on wheelchair
CPT/HCPCS: 36415; 36569; 80048; 80053; 82805; 84145; 85027; 87040; 87077; 87081; 93005; 94640; 96365; 96366; 96368; 96375; 99223; 99239; 99291; 99292; J1650; 71045; 80202; 81003; 81015; 83605; 83735; 83880; 84484; 85025; 85610; 85730; 87086; 93010; 94660; J0131; J1940; J1956; J2060; J2543; J2930; J3370; J3475; J3490; J7620